=== PATIENT | female | born 1950 | race Caucasian/White ===

== ENCOUNTER 2017-06-15 09:55 | Inpatient (IN) | payer MEDICARE, BC ==
[~2017-06-15] VITALS: Ht 167.6 cm; Wt 75.3 kg
[2017-06-15] VITALS (10 sets, daily range): BP systolic 116–184; BP diastolic 63–100; PULSE 65–109; RESP 13–18; TEMP 97.7–97.9; O2SAT 95–98
[~2017-06-15 09:55] MED LIST: ATOR20TA42 PO; BONI150T PO; LEVO.05 PO; LORT5TAB PO
[2017-06-15] MEDS ORDERED: SODIUM CHLOR 0.9% 1000 ML INJ 1,000 ML IV ONE (10:00)
--- NOTE | 2017-06-15 10:11 | PD ---
HPI Chief Complaint: Stroke Alert Time Seen by Provider: 09:59 Travel History International Travel<30 days: No Contact w/Intl Traveler<30days: No Traveled to known affect area: No History of Present Illness HPI Patient is a 67-year-old female with history of hypertension and hyperlipidemia who presents to emergency room complaints of possible CVA. Patient reports that she has had a frontal headache for the past 3 days, reports that this morning, her noted that she had was having slurring of speech as well as left arm weakness. Patient reports that she felt ataxic on ambulation, reports that she did not noticed any speech changes or weakness. When EMS arrived on scene, her NIH scale was 0 and she had resolution of her symptoms. Patient reports that she is not on any anticoagulants at this time. Denies any chest pain or shortness of breath. Patient denies any fall or trauma. Patient reports that she did try taking some Excedrin migraine for her headache, reports no relief of her headache. Patient with no history of CVA or TIA in the past. BS 175 PFSH Past Medical History High Cholesterol: Yes Diminished Hearing: No GERD: Yes Hypertension: Yes Musculoskeletal: Yes (OSTEOPOROSIS) Thyroid Disease: Yes Past Surgical History Surgical History: No Previous Surgery Social History Alcohol Use: Yes ("OCCASIONALLY") Tobacco Use: No Substance Use: No Allergies-Medications (Allergen,Severity, Reaction): Coded Allergies: Sulfa (Sulfonamide Antibiotics) (Unverified Allergy, Mild, HEADACHE, ) Reported Meds & Prescriptions Reported Meds & Active Scripts Active Reported Lipitor (Atorvastatin Calcium) 20 Mg Tab 20 Mg PO DAILY Synthroid (Levothyroxine Sodium) 50 Mcg Tab 50 Mcg PO DAILY Dyrenium (Triamterene) 50 Mg Cap Unknown Dose PO DAILY Review of Systems General / Constitutional: No: Fever Eyes: No: Visual changes HENT: Positive: Headaches, Vertigo Cardiovascular: No: Chest Pain or Discomfort Respiratory: No: Shortness of Breath Gastrointestinal: No: Abdominal Pain Genitourinary: No: Dysuria Musculoskeletal: No: Pain Skin: No Rash Neurologic: Positive: Weakness, Dizziness, Coordination Problem, Ataxia, Slurred Speech, Sensory Disturbance Psychiatric: No: Depression Endocrine: No: Polydipsia Hematologic/Lymphatic: No: Easy Bruising Physical Exam Narrative GENERAL: Moderate distress SKIN: Focused skin assessment warm/dry. HEAD: Atraumatic. Normocephalic. EYES: Pupils equal and round. No scleral icterus. No injection or drainage. ENT: No nasal bleeding or discharge. Mucous membranes pink and moist. NECK: Trachea midline. No JVD. CARDIOVASCULAR: Regular rate and rhythm. No murmur appreciated. RESPIRATORY: No accessory muscle use. Clear to auscultation. Breath sounds equal bilaterally. GASTROINTESTINAL: Abdomen soft, non-tender, nondistended. Hepatic and splenic margins not palpable. MUSCULOSKELETAL: No obvious deformities. No clubbing. No cyanosis. No edema. NEUROLOGICAL: Awake and alert. No obvious cranial nerve deficits. Motor grossly within normal limits. Normal speech. CN 2- 12 grossly intact with no obvious neurological deficits PSYCHIATRIC: Appropriate mood and affect; insight and judgment normal. Data Data Last Documented VS Vital Signs Date Time Temp Pulse Resp B/P (MAP) Pulse Ox O2 Delivery O2 Flow Rate FiO2 06/15/17 11:13 65 15 166/74 (104) 98 Nasal Cannula 06/15/17 10:12 2.00 06/15/17 09:55 97.7 Orders Orders Electrocardiogram (06/15/17 ) I-Stat Creatinine (06/15/17 10:00) I-Stat Profile (06/15/17 10:00) Prothrombin Time / Inr (Pt) (06/15/17 10:00) Act Partial Throm Time (Ptt) (06/15/17 10:00) Complete Blood Count With Diff (06/15/17 10:00) Creatine Kinase (Cpk) (06/15/17 10:00) Troponin I (06/15/17 10:00) Ua Includes Microscopic (06/15/17 10:00) Ct Brain W/O Iv Contrast(Rout) (06/15/17 ) Chest, Single Ap (06/15/17 ) Consult Neurology (06/15/17 ) Blood Glucose (06/15/17 10:00) Ecg Monitoring (06/15/17 10:00) Iv Access Insert/Monitor (06/15/17 10:00) NPO (06/15/17 10:00) Oximetry (06/15/17 10:00) Sodium Chlor 0.9% 1000 Ml Inj (Ns 1000 M (06/15/17 10:00) Dexamethasone Inj (Decadron Inj) (06/15/17 10:15) Levetiracetam 1000 Mg Inj (Keppra 1000 M (06/15/17 10:15) Consult Neurosurgery (06/15/17 ) Mri Brain W&W/O Contrast (06/15/17 ) Morphine Inj (Morphine Inj) (06/15/17 10:45) Ondansetron Inj (Zofran Inj) (06/15/17 10:45) Atorvastatin (Lipitor) (06/16/17 09:00) Levothyroxine (Synthroid) (06/16/17 09:00) Labs Laboratory Tests Test 06/15/17 10:00 White Blood Count 10.2 TH/MM3 Red Blood Count 4.88 MIL/MM3 Hemoglobin 15.7 GM/DL Bedside Hemoglobin 16.3 G/DL Hematocrit 46.6 % Bedside Hematocrit 48.0 % Mean Corpuscular Volume 95.5 FL Mean Corpuscular Hemoglobin 32.2 PG Mean Corpuscular Hemoglobin Concent 33.8 % Red Cell Distribution Width 13.1 % Platelet Count 231 TH/MM3 Mean Platelet Volume 9.8 FL Neutrophils (%) (Auto) 82.7 % Lymphocytes (%) (Auto) 13.5 % Monocytes (%) (Auto) 3.4 % Eosinophils (%) (Auto) 0.1 % Basophils (%) (Auto) 0.3 % Neutrophils # (Auto) 8.5 TH/MM3 Lymphocytes # (Auto) 1.4 TH/MM3 Monocytes # (Auto) 0.3 TH/MM3 Eosinophils # (Auto) 0.0 TH/MM3 Basophils # (Auto) 0.0 TH/MM3 CBC Comment DIFF FINAL Differential Comment Prothrombin Time 10.7 SEC Prothromb Time International Ratio 1.0 RATIO Activated Partial Thromboplast Time 21.2 SEC Bedside Sodium 143 MMOL/L Bedside Potassium 3.7 MMOL/L Bedside Chloride 101 MMOL/L Bedside Blood Urea Nitrogen 18 MG/DL Bedside Creatinine 0.9 MG/DL Bedside Glucose 159 MG/DL Total Creatine Kinase 56 U/L Troponin I LESS THAN 0.02 NG/ML [facility] Medical Screen Exam Complete: Yes Emergency Medical Condition: Yes Medical Record Reviewed: Yes EKG Prior to Arrival: No Differential Diagnosis EKG at 1030: NSR at 93bpm, qt/qtc; 284/334, incomplete rbbb Differential includes intracranial hemorrhage, CVA, TIA, ACS, arrhythmia, intracranial mass Narrative Course 67-year-old female who presents to emergency room as a stroke alert. Onset of symptoms was 6 AM this morning with slurring of speech and left arm drift. Blood sugar was 135 while in the emergency room. Patient with near resolution of symptoms upon presentation to the emergency room, reports that she still had a frontal headache. Stroke protocol initiated Dr. Sepulveda consulted CT of the head shows a large mass to the right lateral ventricle which extends to the right frontal and right temporal lobe with vasogenic edema, there is slight shift do this mass with slight herniation. Case reviewed with Dr. Witt, will see her in consult. We'll start patient on antiseizure medications as well as IV steroids. Call made to neurosurgery. Patient is not a lytic candidate at this time. Case reviewed with Dr. Gonzalez, will see patient in consult, request keppra and MRI of brain Case will be admitted to mechanical maintenance All findings reviewed were reviewed with patient in detail. case reviewed with Dr. Johnson who accepts pt to service Critical Care Narrative Aggregate critical care time was 30 minutes. Time to perform other separately billable procedures was not included in the critical care time. My time did not include minutes spent treating any other patients simultaneously or on activities that did not directly contribute to the patient's treatment. The services I provided to this patient were to treat and/or prevent clinically significant deterioration that could result in: , decompensation, deterioration I provided critical care services requiring my management, as noted below: Chart data review, documentation time, medication orders and management, vital sign assessments/reviewing monitor data, ordering and reviewing lab tests, ordering and interpreting/reviewing x-rays and diagnostic studies, care of the patient and discussion of the patient with the admitting physicians. Stroke Alert NIHSS NIH Stroke Scale Result: 0 NIHSS Time Completed: 09:57 Thrombolytic Contraindications Contraindications Comment: Intracranial mass Diagnosis Diagnosis: Primary Impression: Intracranial mass Admitting Physician Requests: Ciara Benites DO Jun 15, 2017 10:11
[2017-06-15] MEDS ORDERED: levETIRAcetam 1000 MG INJ 100 ML IV ONE (10:15)
[2017-06-15] MEDS ORDERED: DEXAMETHASONE SOD PHOS 20 MG/5 ML VIAL IV PUSH ONE (10:15)
--- NOTE | 2017-06-15 10:16 | RADRPT ---
EXAM DATE/TIME: 06/15/2017 09:58 [facility] COMPARISON: No previous studies available for comparison. INDICATIONS : Stroke alert, left sided weakness and slurred speech. RADIATION DOSE: 56.40 CTDIvol (mGy) MEDICAL HISTORY : Hypertension. SURGICAL HISTORY : None. ENCOUNTER: Initial ACUITY: 1 day PAIN SCALE: 0/10 LOCATION: cranial TECHNIQUE: Multiple contiguous axial images were obtained of the head. Using automated exposure control and adj ustment of the mA and/or kV according to patient size, radiation dose was kept as low as reasonably a chievable to obtain optimal diagnostic quality images. DICOM format image data is available electro nically for review and comparison. FINDINGS: CEREBRUM: There is a 6.0 x 4.7 cm mass centered in the right lateral ventricle extending into the right frontop arietal cerebral hemisphere. There is prominent associated vasogenic edema. 1.2 cm right to left midl ine shift. Scattered calcification is seen within the mass. No evidence of acute hemorrhage. Ventricu lar size is within normal limits. POSTERIOR FOSSA: The cerebellum and brainstem are intact. The 4th ventricle is midline. The cerebellopontine angle i s unremarkable. EXTRACRANIAL: The visualized portion of the orbits is intact. SKULL: The calvaria is intact. No evidence of skull fracture. CONCLUSION: Large right-sided intracranial mass involving the right lateral ventricle as well as the right fronto parietal cerebral hemisphere. Prominent associated vasogenic edema and right to left midline shift. F indings suggest a primary intracranial malignancy. The mass does have associated calcification. Findi ngs were discussed with Dr. Day at 1010. Obie Malagon MD on June 15, 2017 at 10:09 Board Certified Radiologist. This report was verified electronically.
[2017-06-15 10:21] LABS: I-STAT POTASSIUM 3.7 MMOL/L (3.5-4.9); I-STAT SODIUM 143 MMOL/L (138-146)
[2017-06-15 10:22] LABS: AUTOMATED NEUTROPHIL # 8.5 TH/MM3 (1.8-7.7); BASOPHIL % 0.3 % (0.0-2.0); EOSINOPHIL % 0.1 % (0.0-4.0); HEMATOCRIT 46.6 % (35.0-46.0); HEMO FLAGS DIFF FINAL; LYMPH % 13.5 % (9.0-44.0); LYMPHOCYTE # 1.4 TH/MM3 (1.0-4.8); MEAN CELL VOLUME 95.5 FL (80.0-100.0); MEAN CORPUSCULAR HEMOGLOBIN 32.2 PG (27.0-34.0); MEAN CORPUSCULAR HGB CONC 33.8 % (32.0-36.0); MONO % 3.4 % (0.0-8.0); NEUT % 82.7 % (16.0-70.0); PLATELET COUNT 231 TH/MM3 (150-450); RED BLOOD COUNT 4.88 MIL/MM3 (4.00-5.30); RED CELL DISTRIBUTION WIDTH 13.1 % (11.6-17.2); WHITE BLOOD COUNT 10.2 TH/MM3 (4.0-11.0)
[2017-06-15 10:30] LABS: APTT (PATIENT) 21.2 SEC (24.3-30.1); PROTHROMBIN TIME - PATIENT 10.7 SEC (9.8-11.6)
--- NOTE | 2017-06-15 10:37 | RADRPT ---
EXAM DATE/TIME: 06/15/2017 10:20 [facility] COMPARISON: No previous studies available for comparison. INDICATIONS : Stroke Alert MEDICAL HISTORY : Hypertension. SURGICAL HISTORY : None. ENCOUNTER: Initial ACUITY: 1 day PAIN SCORE: Non-responsive. LOCATION: chest FINDINGS: A single view of the chest demonstrates the lungs to be symmetrically aerated without evidence of mas s, infiltrate or effusion. The cardiomediastinal contours are unremarkable. Osseous structures are intact. CONCLUSION: 1. No acute cardiopulmonary findings. Harvinder Bryant MD on June 15, 2017 at 10:35 Board Certified Radiologist. This report was verified electronically.
[2017-06-15] MEDS ORDERED: LEVO.05 PO (10:45)
[2017-06-15] MEDS ORDERED: ONDANSETRON HCL 4 MG/2 ML VIAL IV PUSH ONE (10:45)
[2017-06-15] MEDS ORDERED: MORPHINE SULFATE 4 MG/ML INJ IV PUSH ONE (10:45)
[2017-06-15] MEDS ORDERED: LIPI20TA PO (10:45)
[2017-06-15] MEDS ORDERED: TRIA1CAP6 PO (10:45)
[2017-06-15 10:52] LABS: CREATINE KINASE 56 U/L (26-192)
--- NOTE | 2017-06-15 11:42 | MB ---
cc: LEX COPELAND MD DATE OF CONSULTATION 06/15/2017 REASON FOR CONSULTATION Next stroke alert HISTORY OF PRESENT ILLNESS Ms. Martinez is a 67-year-old female who presented to the [facility] as a stroke alert. She has past medical history of hypertension, hyperlipidemia and she complained this morning of headache, frontal for three days, but her noted that she had slurring of speech with mild left arm weakness. The patient also reported that she felt unsteady when she walks however, she did not notice speech changes. Upon arrival of the EMS, an NIH stroke scale was zero with resolution of the symptoms. The patient is not on any blood thinners or anticoagulation. Denies double vision, blurred vision, convulsions, seizure, chronic headache or migraine. No history of cancer. An urgent PET/CT scan was ordered and revealed a large right-sided intracranial mass involving the right lateral ventricle, as well as the right frontoparietal cerebral hemisphere, prominent associated with vasogenic edema and right to left midline shift. Findings suggest primary intracranial malignancy. The mass does have associated calcification. PAST MEDICAL HISTORY 1. Hyperlipidemia 2. Gastroesophageal reflux disease 3. Hypertension 4. Osteoporosis 5. Thyroid disease PAST SURGICAL HISTORY Not relevant. REVIEW OF SYSTEMS A 12-point review of systems is negative except what is stated in the HPI. SOCIAL HISTORY Occasionally uses alcohol. Denies tobacco and substance abuse. ALLERGIES SULFA MEDICATIONS 1. Lortab 2. Boniva 3. Synthroid 4. Lipitor FAMILY HISTORY Noncontributory PHYSICAL EXAMINATION GENERAL: Awake, alert, and oriented to time, person and place, anxious. HEENT: Atraumatic, normocephalic. Intact hearing and intact vision. NECK: Supple. No signs of meningeal irritation. No carotid bruit. CARDIOVASCULAR: Regular rate and rhythm. No murmurs. RESPIRATORY: Clear to auscultation. No wheezes. GASTROINTESTINAL: Soft abdomen, nontender. MUSCULOSKELETAL: Moves extremities equally. No clubbing, no cyanosis, no deformity. NEUROLOGIC: Awake, alert, and oriented to time, person and place. No signs of meningeal irritation. No dysarthria. No dysphasia. He has left visual field neglect with diminished sensation of the left face, subtle left facial weakness 5/5 bilateral and symmetrical. Positive for sensory extinction on the entire left side with diminished sensation of the left upper and lower extremity. Cerebellar functions are intact [id number], [id number]. Reflexes bilateral symmetrical, left plantar is upgoing. Positive Babinski. Right plantar downgoing. PSYCHIATRY: Anxious, appropriate mood and affect. No hallucination. LABORATORY DATA White blood cells 10.2, hemoglobin 15.7, hematocrit 46, MCV 33.8, platelet 231. Sodium 143, potassium 3.7, BUN 18, creatinine 0.9, glucose 159. DIAGNOSTICS IMAGING - Head CT scan without contrast revealed large right-sided intracranial mass involving the right lateral ventricle as well as the right frontal parietal cerebral hemisphere, prominent associated vasogenic edema and right to left midline shift, findings suggest a primary intracranial malignancy. The mass does have associated calcifications. DIAGNOSTIC IMPRESSION 1. Stroke alert. 2. Intracranial mass lesion with vasogenic edema likely primary intracranial tumor. 3. The patient is not a candidate for IV TPA because of the low NIH stroke scale and the presence of a mass lesion with vasogenic edema. 4. Admission in the ICU. 5. Elevation head of bed. 6. Seizure prophylaxis, Keppra 750 mg twice daily. 7. Prednisone 4 mg q.6 hourly 8. DVT prophylaxis 9. Consult neurosurgery recommendations are appreciated. 10. The clinical case is discussed with Dr. Ciara Day. Thank you for the opportunity to participate in the care of your patient. MD RUPA Hernández/DARLENE /11:03 AM /11:27 AM [place]
[2017-06-15] MEDS ORDERED: RESP: ALBUTEROL 2.5 MG/IPRATROPIUM 0.5 MG NEB (PRN) INH (11:45)
[2017-06-15] MEDS ORDERED: CHLORHEXIDINE GLUCONATE 2 % 1 PACK (2 CLOTHS) TOP PRN (11:45)
[2017-06-15] MEDS ORDERED: ACETAMINOPHEN 325 MG TAB PO PRN (11:45)
[2017-06-15] MEDS ORDERED: MORPHINE SULFATE 4 MG/ML INJ IV PUSH PRN (11:45)
[2017-06-15] MEDS ORDERED: MISCELLANEOUS NURSING INFORMATION XX SCH (11:45)
[2017-06-15] MEDS ORDERED: GADODIAMIDE PF 287 MG/ML 20 ML VIAL (for RAD MRI) IVCONTRAST ONE (13:03)
[2017-06-15] MEDS ORDERED: MANNITOL 12.5 GM/50 ML VIAL IV ONE (14:00)
[2017-06-15] MEDS ORDERED: MANNITOL 12.5 GM/50 ML VIAL IV SCH (14:00)
--- NOTE | 2017-06-15 14:02 | RADRPT ---
EXAM DATE/TIME: 06/15/2017 12:47 [facility] COMPARISON: CT BRAIN W/O CONTRAST, June 15, 2017, 9:58. INDICATIONS : Mass. CONTRAST: 16 cc Omniscan (gadodiamide) IV MEDICAL HISTORY : Hypertension. Hypothyroidism. SURGICAL HISTORY : Right wrist surgery. ENCOUNTER: Subsequent ACUITY: 1 day PAIN SCORE: 0/10 LOCATION: head. TECHNIQUE: Multiplanar, multisequence MRI of the brain was performed both prior to and following the administrat ion of paramagnetic contrast. FINDINGS: MRI confirms the presence of a large intensely enhancing slightly heterogeneous mass involving the ri ght parietal region. The mass measures 6.1 x 6.0 x 4.7 cm (sagittal x AP x transverse). There is mode rate dilatation of the right occipital and temporal horns of the lateral ventricle and compression an d effacement of the body and frontal horn. The lesion may arise in an intraventricular location, castañeda theodore this is not determined with certainty. Prominent surrounding vasogenic edema is present. There is slightly greater than 1 cm subfalcine midline shift. There is encroachment of brain tissue and tumor on the ambient cistern and slight compression of the upper brainstem Other than the brain shaft, the contralateral left hemisphere and the posterior fossa structures are unremarkable. No other similar lesions present elsewhere aerated There is no evidence of hemorrhage. There is nothing to suggest acute infarction. CONCLUSION: Slightly heterogeneous though fairly well circumscribed intensely enhancing mass in the right parieta l region. Potentially arising in an intraventricular location. Differential considerations would prim arily include tumors of ependymal, choroid plexus or glial origin. Metastatic disease would be an add itional consideration felt less likely. Jeff Dunne MD on June 15, 2017 at 13:45 Board Certified Radiologist. This report was verified electronically.
--- NOTE | 2017-06-15 15:05 | HHI.HP ---
HPI Service Critical Care Medicine Primary Care Physician Unknown Admission Diagnosis Intracranial mass with vasogenic edema Diagnosis: Chief Complaint: Wobbly walking and headache. Travel History International Travel<30 Days: No Contact w/Intl Traveler <30 Da: No Traveled to Known Affected Are: No History of Present Illness 67 y/o woman has a several day headache and new ataxia associated with left arm weakness., slurred speech. Arrived as stroke alert and CT Head reveals 6.0 X 4.5 X 6.0 cm right hemispheric mass, largely involving lateral ventricle right side. Subfalcine shift right to left > 10 mm. Received Keppra, Decadron, and mannitol. Review of Systems Constitutional: DENIES: Diaphoretic episodes, Fatigue, Fever, Weight gain, Weight loss, Chills, Dizziness, Change in appetite, Night Sweats Endocrine: DENIES: Abnorml menstrual pattern, Heat/cold intolerance, Polydipsia , Polyuria, Polyphagia Eyes: DENIES: Blurred vision, Diplopia, Eye inflammation, Eye pain, Vision loss , Photosensitivity, Double Vision Ears, nose, mouth, throat: DENIES: Tinnitus, Hearing loss, Vertigo, Nasal discharge, Oral lesions, Throat pain, Hoarseness, Ear Pain, Running Nose, Epistaxis, Sinus Pain, Toothache, Odynophagia Respiratory: DENIES: Apneas, Cough, Snoring, Wheezing, Hemoptysis, Sputum production, Shortness of breath Cardiovascular: DENIES: Chest pain, Palpitations, Syncope, Dyspnea on Exertion , PND, Lower Extremity Edema, Orthopnea, Claudication Musculoskeletal: DENIES: Joint pain, Muscle aches, Stiffness, Joint Swelling, Back pain, Neck pain Integumentary: DENIES: Abnormal pigmentation, Pruritus, Rash, Nail changes, Breast masses, Breast skin changes, Nipple discharge Hematologic/lymphatic: DENIES: Bruising, Lymphadenopathy Immunologic/allergic: DENIES: Eczema, Urticaria Neurologic: COMPLAINS OF: Abnormal gait, Headache, Localized weakness, Speech Problems, Poor Balance Past Family Social History Allergies: Coded Allergies: Sulfa (Sulfonamide Antibiotics) (Unverified Allergy, Mild, HEADACHE, ) Past Medical History Past Medical History High Cholesterol: Yes Diminished Hearing: No GERD: Yes Hypertension: Yes Musculoskeletal: Yes (OSTEOPOROSIS) Thyroid Disease: Yes Past Surgical History Surgical History: No Previous Surgery Social History Alcohol Use: Yes ("OCCASIONALLY") Tobacco Use: No Substance Use: No Allergies-Medications Allergies-Medications (Allergen,Severity, Reaction): Coded Allergies: Sulfa (Sulfonamide Antibiotics) (Unverified Allergy, Mild, HEADACHE, ) Reported Meds & Prescriptions Reported Meds & Active Scripts Active Reported Lipitor (Atorvastatin Calcium) 20 Mg Tab 20 Mg PO DAILY Synthroid (Levothyroxine Sodium) 50 Mcg Tab 50 Mcg PO DAILY Dyrenium (Triamterene) 50 Mg Cap Unknown Dose PO DAILY Physical Exam Vital Signs Vital Signs Date Time Temp Pulse Resp B/P (MAP) Pulse Ox O2 Delivery O2 Flow Rate FiO2 06/15/17 14:05 70 18 143/65 (91) 99 06/15/17 11:13 65 15 166/74 (104) 98 Nasal Cannula 06/15/17 10:12 83 18 180/79 (112) 98 Nasal Cannula 2.00 06/15/17 10:05 92 16 172/81 (111) 97 Nasal Cannula 2.00 06/15/17 09:55 97.7 109 16 184/100 (128) 97 06/15/17 09:55 97 Room Air 06/15/17 09:55 97.7 109 18 184/100 (128) 97 Room Air Physical Exam Gen: Sedated after MRI. Head: Atraumatic. Neck: Supple, airway widely patent. Lungs: Clear, no wheezes or crackles. Heart: NL S1S2, no m,r. No JVD. Abdomen: Soft, no guarding. Extremities: Warm, well perfused. Neuro: Pupils 2 mm, reactive. Largely unresponsive (due to sedation/analgesia for MRI ?) DTRs 3+ left knee, 2+ right knee. No clonus. Toes down right. Neutral left. Protects airway, gag intact. Laboratory Laboratory Tests Test 06/15/17 10:00 White Blood Count 10.2 Red Blood Count 4.88 Hemoglobin 15.7 Bedside Hemoglobin 16.3 Hematocrit 46.6 Bedside Hematocrit 48.0 Mean Corpuscular Volume 95.5 Mean Corpuscular Hemoglobin 32.2 Mean Corpuscular Hemoglobin Concent 33.8 Red Cell Distribution Width 13.1 Platelet Count 231 Mean Platelet Volume 9.8 Neutrophils (%) (Auto) 82.7 Lymphocytes (%) (Auto) 13.5 Monocytes (%) (Auto) 3.4 Eosinophils (%) (Auto) 0.1 Basophils (%) (Auto) 0.3 Neutrophils # (Auto) 8.5 Lymphocytes # (Auto) 1.4 Monocytes # (Auto) 0.3 Eosinophils # (Auto) 0.0 Basophils # (Auto) 0.0 CBC Comment DIFF FINAL Differential Comment Prothrombin Time 10.7 Prothromb Time International Ratio 1.0 Activated Partial Thromboplast Time 21.2 Bedside Sodium 143 Bedside Potassium 3.7 Bedside Chloride 101 Bedside Blood Urea Nitrogen 18 Bedside Creatinine 0.9 Bedside Glucose 159 Total Creatine Kinase 56 Troponin I LESS THAN 0.02 Result Diagram: 06/15/17 1000 Caprini VTE Risk Assessment Caprini VTE Risk Assessment: Mod/High Risk (score >= 2) Caprini Risk Assessment Model Point Value = 1 Point Value = 2 Point Value = 3 Point Value = 5 Age 41-60 Minor surgery BMI > 25 kg/m2 Swollen legs Varicose veins or History of unexplained or recurrent spontaneous Oral contraceptives or hormone replacement Sepsis (< 1 month) Serious lung disease, including pneumonia (< 1 month) Abnormal pulmonary function Acute myocardial infarction Congestive heart failure (< 1 month) History of inflammatory bowel disease Medical patient at bed rest Age 61-74 Arthroscopic surgery Major open surgery (> 45 min) Laparoscopic surgery (> 45 min) Malignancy Confined to bed (> 72 hours) Immobilizing plaster cast Central venous access Age >= 75 History of VTE Family history of VTE Factor V Leiden Prothrombin [id number] Lupus anticoagulant Anticardiolipin antibodies Elevated serum homocysteine Heparin-induced thrombocytopenia Other congenital or acquired thrombophilia Stroke (< 1 month) Elective arthroplasty Hip, pelvis, or leg fracture Acute spinal cord injury (< 1 month) Prophylaxis Regimen Total Risk Factor Score Risk Level Prophylaxis Regimen 0-1 Low Early ambulation 2 Moderate Order ONE of the following: *Sequential Compression Device (SCD) *Heparin 5000 units SQ BID 3-4 Higher Order ONE of the following medications: *Heparin 5000 units SQ TID *Enoxaparin/Lovenox 40 mg SQ daily (WT < 150 kg, CrCl > 30 mL/min) *Enoxaparin/Lovenox 30 mg SQ daily (WT < 150 kg, CrCl > 10-29 mL/min) *Enoxaparin/Lovenox 30 mg SQ BID (WT < 150 kg, CrCl > 30 mL/min) AND/OR *Sequential Compression Device (SCD) 5 or more Highest Order ONE of the following medications: *Heparin 5000 units SQ TID (Preferred with Epidurals) *Enoxaparin/Lovenox 40 mg SQ daily (WT < 150 kg, CrCl > 30 mL/min) *Enoxaparin/Lovenox 30 mg SQ daily (WT < 150 kg, CrCl > 10-29 mL/min) *Enoxaparin/Lovenox 30 mg SQ BID (WT < 150 kg, CrCl > 30 mL/min) AND *Sequential Compression Device (SCD) Assessment and Plan Assessment and Plan Assessment: 1. Large right hemisphere mass. 2. Right to left shift.shift. 3. Ataxia, left side weakness. 4. Slurred speech. Plan: 1. Mannitol bolus and q8h. 2. Decadron bolus and q6h. 3. Limit fluid. 4. Airway precautions. 5. Pepcid. 6. No chemical DVT px. 7. SCDs. 8 Neurosurgery evaluation. Overall impression: Critically ill with large brain mass, probable cytogenic edema and potential for herniation. Requires immediate efforts to reduce cerebral edema. Evaluation by neurosurgery. Critical Care 44 mins Jaspreet Paez MD Jun 15, 2017 15:05
[2017-06-15] MEDS ORDERED: DEXAMETHASONE SOD PHOS 4 MG/ML VIAL IV PUSH SCH (16:00)
[2017-06-15] MEDS: DEXAMETHASONE SOD PHOS 4 MG/ML VIAL IV PUSH SCH ×2 (16:00→20:17)
--- NOTE | 2017-06-15 16:52 | EKG ---
Date Performed: 06/15/2017 Time Performed: 10:30:18 PTAGE: 67 years EKG: Sinus rhythm POSSIBLE LEFT ATRIAL ENLARGEMENT BORDERLINE LEFT AXIS DEVIATION INCOMPLETE RIGHT BUNDLE BRANCH BLOCK NONSPECIFIC ST & T-WAVE ABNORMALITY BORDERLINE ECG NO PREVIOUS TRACING DOCTOR: Sarah Castillo Interpretating Date/Time 06/15/2017 16:52:08
[2017-06-15] MEDS ORDERED: ALUMINUM/MAGNESIUM/SIMETH 30 ML CUP PO PRN (17:15)
[2017-06-15] MEDS ORDERED: MENTHOL LOZENGE BUCCAL PRN (17:15)
[2017-06-15] MEDS ORDERED: MAGNESIUM HYDROXIDE SUSP 30 ML CUP PO PRN (17:15)
[2017-06-15] MEDS ORDERED: ACETAMINOPHEN/HYDROcodone 325 MG/5 MG TAB PO PRN (17:15)
[2017-06-15] MEDS ORDERED: PROMETHAZINE INJ 25 MG/ML VIAL IM PRN (17:15)
[2017-06-15] MEDS ORDERED: SODIUM CHLORIDE 0.9% FLUSH 10 ML FLUSH IV FLUSH PRN (17:15)
--- NOTE | 2017-06-15 18:15 | MB ---
cc: ALEX FERNANDEZ MD DATE OF CONSULTATION 06/15/17 REASON FOR CONSULTATION Brain mass. HISTORY OF PRESENT ILLNESS This is a 67-year-old right-handed female who presented to the emergency room with complaints of weakness on the left side that started about four days ago along with some slurred speech. She is veering to the left side and basically almost fell but did not strike her head this morning. She was initially brought in as a stroke alert. A CT scan of the head obtained reveals a large right intraventricular mass involving the thalamus and part of the mid brain with surrounding edema. No hydrocephalus is noted, although the right temporal horn may be entrapped and is moderately dilated. She had an MRI scan which reveals a very complex and large enhancing mass with partial areas of calcification and measures close to 6 cm with bi-lobed appearance involving the parietal and temporal lobes as well as the body of the lateral ventricle and the temporal horn dilation with involvement of the thalamus and either compression or invasion of the lateral aspect of the brainstem. The patient relates that she has had headaches along with nausea and vomiting this morning. She has been lethargic but does arouse, although has also received morphine and apparently is very sensitive to this. relates for the past couple of months she has had some headaches on and off but not unusual for her. Up until four or five days ago they really did not notice any significant symptoms. PAST MEDICAL HISTORY 1. Hypertension, 2. Hyperlipidemia, 3. Gastroesophageal reflux, 4. Osteoporosis, 5. Hypothyroidism. MEDICATIONS 1. Triamterene 15 mg daily. 2. Synthroid 50 mcg daily. 3. Lipitor 20 mg daily. ALLERGIES SULFA SOCIAL HISTORY She is and her is here with her. She quit smoking over 30 years ago and drinks alcohol on a social basis. REVIEW OF SYSTEMS Complains of a headache. Complains initially of nausea, vomiting, although not recently. Complains of left-sided weakness. Complains of numbness. Complains of visual loss especially on the left side. Denies any chest pain or shortness of breath. Denies any abdominal pain. Denies any fevers or chills. Denies any recent weight gain or weight loss. No seizure or seizure-like activity noted. Does relate unsteady gait with veering to the left side with slight confusion. LABORATORY FINDINGS White blood cell count 10.2, hemoglobin 15.7. Platelet count 231, PT 10.7, INR 1.0, PTT 21.2. Sodium 143, potassium 3.7, BUN 18, creatinine 0.9, glucose of 159. FAMILY HISTORY Positive for colon cancer in the mother. Otherwise no other significant family history and she has no children. PHYSICAL EXAMINATION VITAL SIGNS: Temperature 97.7, pulse is 70, respiratory rate 18, blood pressure 143/65, oxygen saturations 98% two liters nasal cannula. HEENT: Head - Normocephalic, atraumatic. Negative Mckee's and raccoon's sign. NECK: Supple with no guarding or rigidity with good range of motion. CHEST: Clear to auscultation bilaterally HEART: Regular rate and rhythm, normal S1, S2. ABDOMEN: Soft, nontender. No hepatosplenomegaly. Positive bowel sounds. EXTREMITIES: No cyanosis or edema. SKIN: No breakdown, ecchymosis, soft tissue trauma or rashes noted. NEUROLOGIC: She is awake, alert. She is oriented to location and name but not the date. Pupils are equal and reactive. Extraocular muscles are intact. She has a left homonymous hemianopsia. Slight left facial droop. Tongue is midline. EXTREMITIES: Right upper and lower extremities She has good strength. On the left upper extremity, she is 3/5. Left lower extremity 4-/5. Decreased sensation to light touch on left-side Negative Babinski. Speech is fluent, although she is lethargic but does arouse to verbal stimulation readily. IMPRESSION 1. Large right temporoparietal lobe mass involving the lateral ventricle with a multi-lobed appearance and enhancement with small areas of calcification and also involving the thalamus as well as the mid brain. Differential diagnosis includes a glioma, giant cell astrocytoma, pandamoma, corroid plexus with papilloma or a choriocarcinoma, metastasis among other possibilities. 2. Hypertension. PLAN The patient will be monitored closely in the surgical intensive care unit. Head of bed will be kept elevated at 30 degrees. She will be continued with Decadron and mannitol. Gastrointestinal stress ulcer prophylaxis, seizure prophylaxis and mechanical DVT prophylaxis will be undertaken. I have had a lengthy discussion with the patient as well as her and family members at bedside and reviewed the MRI scan images with them. I have recommended a right craniotomy with excisional biopsy. Aggressive resection of this mass is likely not going to be feasible given the location and deeper extension and involvement of the thalamus and possibly the brainstem. We will also place a ventriculostomy, since the right temporal horn is moderately dilated and she is at risk for development of hydrocephalus. The risks and benefit involved were discussed and they voiced understanding and all of their questions were answered. They are requesting to proceed with surgery and accordingly this will be scheduled for tomorrow and informed consent obtained. MD ARNOLD Mills/ /5:20 PM /5:46 PM
[2017-06-15] MEDS: levETIRAcetam 500 MG TAB PO SCH (20:16)
[2017-06-15] MEDS: DOCUSATE SODIUM 100 MG CAP PO SCH (20:16)
[2017-06-15] MEDS: FAMOTIDINE 20 MG TAB PO SCH (20:17)
[2017-06-15] MEDS: SODIUM CHLORIDE 0.9% FLUSH 10 ML FLUSH IV FLUSH SCH (20:18)
[2017-06-15] MEDS: levETIRAcetam INJ 500 MG in SODIUM CHLORIDE 0.9% INJ 100 ML IV SCH (20:18)
[2017-06-15] MEDS: MANNITOL INJ 125 ML IV SCH (22:12)
[2017-06-16] VITALS (9 sets, daily range): BP systolic 114–137; BP diastolic 56–71; PULSE 35–102; RESP 14–22; TEMP 98.2–98.4; O2SAT 98–100
[2017-06-16] MEDS: DEXAMETHASONE SOD PHOS 4 MG/ML VIAL IV PUSH SCH ×3 (03:46→22:16)
[2017-06-16] MEDS: ACETAMINOPHEN 325 MG TAB PO PRN (03:47)
[2017-06-16] MEDS: CHLORHEXIDINE GLUCONATE 2 % 1 PACK (2 CLOTHS) TOP SCH (04:00)
[2017-06-16] MEDS: MANNITOL INJ 125 ML IV SCH ×2 (04:00→11:20)
[2017-06-16 05:32] LABS: BICARBONATE 26.4 MEQ/L (21.0-32.0); MAGNESIUM 2.2 MG/DL (1.5-2.5); POTASSIUM 3.5 MEQ/L (3.5-5.1)
[2017-06-16] MEDS: LEVOTHYROXINE SODIUM 50 MCG TAB PO SCH (05:43)
[2017-06-16] MEDS: levETIRAcetam INJ 500 MG in SODIUM CHLORIDE 0.9% INJ 100 ML IV SCH (08:31)
[2017-06-16] MEDS: SODIUM CHLORIDE 0.9% FLUSH 10 ML FLUSH IV FLUSH SCH ×2 (08:31→20:11)
[2017-06-16] MEDS: ATORVASTATIN 20 MG TAB PO SCH (08:32)
[2017-06-16] MEDS: levETIRAcetam 500 MG TAB PO SCH ×2 (08:32→20:11)
[2017-06-16] MEDS: DOCUSATE SODIUM 100 MG CAP PO SCH ×2 (09:00→20:11)
[2017-06-16] MEDS: FAMOTIDINE 20 MG TAB PO SCH ×2 (09:01→20:11)
[2017-06-16] MEDS: MORPHINE SULFATE 4 MG/ML INJ IV PUSH PRN (09:23)
[2017-06-16] MEDS: ONDANSETRON HCL 4 MG/2 ML VIAL IV PUSH PRN (09:23)
[2017-06-16] MEDS ORDERED: INFLUENZA VIRUS VACCINE (QUADRIVALENT) 0.5 ML SYR IM ONE (10:00)
--- NOTE | 2017-06-16 10:31 | HHI.CCPN ---
Subjective Remarks/Hospital Course 67 y/o woman has a several day headache and new ataxia associated with left arm weakness., slurred speech. Arrived as stroke alert and CT Head reveals 6.0 X 4.5 X 6.0 cm right hemispheric mass, largely involving lateral ventricle right side. Subfalcine shift right to left > 10 mm. Received Keppra, Decadron, and mannitol. 06/16: Breathing comfortably today. Speech clear. Persistent left side weakness and mild left facial droop. Minimal headache. Objective Vital Signs Date Time Temp Pulse Resp B/P (MAP) Pulse Ox O2 Delivery O2 Flow Rate FiO2 06/16/17 08:00 98.4 69 15 122/58 (79) 98 06/16/17 07:00 Nasal Cannula 1.00 06/15/17 17:52 21 Intake and Output 06/16/17 06/16/17 06/17/17 08:00 16:00 00:00 Output Total 900 ml Balance -900 ml Result Diagram: 06/15/17 1000 06/16/17 0356 Objective Remarks Gen: Sedated after MRI. Head: Atraumatic. Neck: Supple, airway widely patent. Lungs: Clear, no wheezes or crackles. Heart: NL S1S2, no m,r. No JVD. Abdomen: Soft, no guarding. Extremities: Warm, well perfused. Neuro: Pupils 2 mm, reactive. Alert, conversant. DTRs 3+ left knee, 2+ right knee. No clonus. Toes down right. Neutral left. Protects airway, gag intact. Left arm, leg weaker. A/P Assessment and Plan Assessment: 1. Large right hemisphere mass. 2. Right to left shift, 3. Ataxia, left side weakness. 4. Left side weakness. Plan: 1. Mannitol q6h. 2. Decadron q6h. 3. Limit fluid. 4. Airway precautions. 5. Pepcid. 6. No chemical DVT px. 7. SCDs. 8 Neurosurgery evaluation -> excisional biopsy. Overall impression: Large brain mass, probable cytogenic edema. Evaluation by neurosurgery will include excisional biopsy of mass today. Jaspreet Paez MD Jun 16, 2017 10:31
--- NOTE | 2017-06-16 10:37 | EKG ---
Date Performed: 06/16/2017 Time Performed: 06:00:00 PTAGE: 67 years EKG: Normal Sinus rhythm , rate 74 Nonspecific T wave changes Compared to PREVIOUS TRACING nonspecific anterior T wave changes are more prominent PREVIOUS TRACING : 06/15/2017 10.30 DOCTOR: Brown Barrett Interpretating Date/Time 06/16/2017 10:36:16
[2017-06-16] MEDS ORDERED: LIDOCAINE HCL 1% PF 5 ML AMPULE OTHER ONE (12:00)
[2017-06-16] MEDS ORDERED: ePHEDrine/NS 25 MG/5 ML SYR IV ONE (12:00)
[2017-06-16] MEDS ORDERED: DEXAMETHASONE SOD PHOS 4 MG/ML VIAL IV ONE (12:00)
[2017-06-16] MEDS ORDERED: SODIUM CHLOR 0.9% 250 ML INJ 500 ML IV ONE (12:00)
[2017-06-16] MEDS ORDERED: NORMOSOL R INJ 2,000 ML IV ONE (12:00)
[2017-06-16] MEDS ORDERED: PHENYLEPH/NS 1000 MCG/10 ML SYR IV ONE (12:00)
[2017-06-16] MEDS ORDERED: PROPOFOL 200 MG/20 ML AMP IV ONE (12:00)
[2017-06-16] MEDS ORDERED: ESMOLOL HCL 100 MG/10 ML VIAL IV ONE (12:00)
[2017-06-16] MEDS ORDERED: ONDANSETRON HCL 4 MG/2 ML VIAL IV PUSH ONE (12:00)
[2017-06-16] MEDS ORDERED: PHENYLEPHRINE HCL 10 MG/ML VIAL IV ONE (12:00)
[2017-06-16] MEDS ORDERED: ROCURONIUM INJ 50 MG/5 ML SYRINGE IV PUSH ONE (12:00)
[2017-06-16] MEDS ORDERED: KETAMINE HCL 500 MG/5 ML VIAL ONE (12:24)
[2017-06-16] MEDS ORDERED: ACETAMINOPHEN 1000 MG/100 ML 100 ML IV ONE (12:24)
[2017-06-16] MEDS ORDERED: SUGAMMADEX SODIUM 200 MG/2 ML VIAL IV PUSH ONE ×4 (12:24→12:45)
[2017-06-16] MEDS ORDERED: HYDROmorphone HCL PF 2 MG/ML VIAL ONE (12:24)
[2017-06-16] MEDS ORDERED: BUPIVACAINE/EPINEPHRINE 0.5% 50 ML VIAL ONE (12:37)
[2017-06-16] MEDS ORDERED: levETIRAcetam 500 MG/5 ML VIAL IV ONE (12:38)
[2017-06-16] MEDS ORDERED: GENTAMICIN SULFATE 80 MG/2 ML VIAL ONE (12:38)
[2017-06-16] MEDS ORDERED: GELFOAM SIZE 100 ONE ×2 (12:38→16:51)
[2017-06-16] MEDS ORDERED: THROMBIN (TOPICAL) 5,000 UNIT VIAL ONE (12:38)
[2017-06-16] MEDS ORDERED: LIDOCAINE HCL 1% 30 ML VIAL ONE (12:43)
[2017-06-16] MEDS ORDERED: VANCOMYCIN HCL 1000 MG VIAL ONE (13:17)
--- NOTE | 2017-06-16 16:00 | OTSOAPIP ---
RECEIVED OCCUPATIONAL THERAPY ORDERS. ATTEMPTED TO SEE PATIENT, HOWEVER PATIENT OFF FLOOR FOR NEOPLASM RESECTION. WILL FOLLOW UP AND REATTEMPT EVALUATION TOMORROW. INTERDISCIPLINARY COMMUNICATION: REVIEWED ELECTRONIC MEDICAL RECORD Therapist: Cheyenne Tenorio OTR/[facility] Signature on file
[2017-06-16 16:39] LABS: BLOOD GAS BASE EXCESS -3.6 mmol/L (-2-2); BLOOD GAS CARBOXYHEMOGLOBIN 1.5 % (0-4); BLOOD GAS HCO3 20 mmol/L (22-26); BLOOD GAS METHEMOGLOBIN 1.2 % (0-2); BLOOD GAS O2 HGB SATURATION 97 % (90-100); BLOOD GAS OXYGEN CONTENT 22.3 Vol % (12.0-20.0); BLOOD GAS PCO2 30 mmHg (38-42); BLOOD GAS PO2 198 mmHg (61-120); BLOOD GAS TOTAL HGB 16.1 G/DL (12.0-16.0); CRITICAL VALUE NO; FIO2 55 %; STAT YES; TEMP CORR TO 98.6; ULNAR PULSE PRESENT
--- NOTE | 2017-06-16 18:21 | PD.OP ---
Operative Report Date of Surgery: Jun 16, 2017 Preoperative Diagnosis: Large multilobulated right intraventricular mass involving the parietal and temporal lobes Postoperative Diagnosis: Same Procedure: Right craniotomy for intraventricular meningioma resection; BrainLab frameless navigation use; ventriculostomy placement; microsurgical technique Anesthesia: Gen. endotracheal by Sheree Harrington Surgeon: Alfredo Gonzalez M.D. Dispute Specialist(s): Wendie Jones Operation and Findings: Following initiation of general endotracheal anesthesia the patient had invasive lines and Sneed catheter in place along with sequential compression device. A gram of vancomycin and Keppra as well as 10 mg Decadron was administered intravenously and she was positioned lateral on the beanbag with the right side up and head secured in the [place] 3 pin headrest. Axillary roll was placed and all pressure points adequately padded. The BrainLab navigation system was then registered with external landmarks and good accuracy confirmed. A right curvilinear temporal parietal incision area head shaved and prepped with ChloraPrep and sterilely draped in the usual sterile fashion. Incision was then made after infiltrating the scalp was 0.5% Marcaine with epinephrine solution a skin incision made and Juan clips were used at the scalp edges for hemostasis and the flap retracted with hooks. Right temporalis muscle and fascia was also incised and detached from the temporal bone and retracted with hooks. With an automated transitions manager rn temporal bur hole made and then with the craniotome the bone flap was elevated. The dura opened in a cruciate format and bone holes placed in the craniotomy edges with 4-0 Nurolon dural tacking stitches for hemostasis. Further dissection was undertaken using microtechnique with microscope medication. A 2 cm corticectomy at the middle temporal gyrus at the midportion of the temporal lobe on the right side was made overlying this mass which extended from the temporal horn into the body of the lateral ventricle compressing on the thalamus as well as the midbrain. Resection of this mass was undertaken using microtechnique microscope magnification along with the BrainLab navigation guidance. I entered into the temporal horn of the ventricle identified this mass which had a whitish coloration fairly distinct border. Initial debulking undertaken in the middle was grayish in coloration with very dense tissue and subsequent circumferential dissection. This was a very large mass extending into the body of the lateral ventricle and the temporal horn with feeders from the choroidal vessels in the temporal horn which were cauterized. The [place] was also used to decompress the mass with internal debulking. Fresh frozen specimen sent was consistent with meningioma. A meticulous dissection undertaken after internal debulking using cottonoids and bipolar cautery for circumferential dissection entered from the temporal horn into the body of the lateral ventricle with gentle peeling off the medial surface of the ventricle. It also extended into the ambient cistern to the choroidal fissure which was gently dissected out. After prolonged and extensive dissection a gross total resection was achieved. Bipolar cautery used for hemostasis in the resection bed which was then lined with Surgicel and no bleeding was encountered at this point. Back Tisseel ventriculostomy was then placed into the body of the lateral ventricle and tunneled under the scalp with a trocar and secured the exit site with a 3-0 nylon tie and connected to a drainage bag. Cavity was filled with saline solution and the dura approximately using 4 Nurolon sutures with a central dural tacking stitch. Bone flap approximated using [place] mini plates and bur hole covers. The area was then copiously irrigated. The temporalis fascia was approximated and using 2-0 Vicryl sutures and the galea reapproximated using 3-0 Vicryl interrupted sutures and final scalp closure was with lucero. The Thomason head was then removed and a sterile pressing dressing applied. There were no intraoperative complications and all sponge and needle count was correct at the end of the procedure. Estimated blood loss about 100 cc. Patient was extubated and taken to the recovery room. Alfredo Gonzalez MD Jun 16, 2017 18:21
[2017-06-16 18:24] LABS: HEMATOCRIT 36.3 % (35.0-46.0); MEAN CELL VOLUME 96.9 FL (80.0-100.0); PLATELET COUNT 206 TH/MM3 (150-450); RED BLOOD COUNT 3.74 MIL/MM3 (4.00-5.30); RED CELL DISTRIBUTION WIDTH 13.2 % (11.6-17.2); REVIEW FLAG FINAL; WHITE BLOOD COUNT 16.3 TH/MM3 (4.0-11.0)
[2017-06-16] MEDS: NS + KCL 20 MEQ INJ 1,000 ML IV SCH (18:27)
[2017-06-16] MEDS ORDERED: niCARdipine INJ 25 MG in SODIUM CHLOR 0.9% 250 ML INJ 240 ML IV PRN (18:30)
[2017-06-16 18:48] LABS: BICARBONATE 23.7 MEQ/L (21.0-32.0); POTASSIUM 3.3 MEQ/L (3.5-5.1)
[2017-06-16] MEDS: LABETALOL HCL 100 MG/20 ML VIAL IV PUSH PRN (19:24)
[2017-06-16] MEDS: cloNIDine HCL 0.1 MG TAB PO PRN (20:11)
[2017-06-17] VITALS (14 sets, daily range): BP systolic 122–165; BP diastolic 60–67; PULSE 64–96; RESP 18–22; TEMP 98.1–98.5; O2SAT 96–100
[2017-06-17] MEDS: LABETALOL HCL 100 MG/20 ML VIAL IV PUSH PRN ×2 (01:33→04:55)
[2017-06-17] MEDS: CHLORHEXIDINE GLUCONATE 2 % 1 PACK (2 CLOTHS) TOP SCH (04:00)
--- NOTE | 2017-06-17 04:35 | RADRPT ---
EXAM DATE/TIME: 06/17/2017 04:19 [facility] COMPARISON: CT BRAIN W/O CONTRAST, June 15, 2017, 9:58. MRI BRAIN W & W/O CONTRAST, June 15, 2017, 12 :47. INDICATIONS : Post operative craniotomy. RADIATION DOSE: 42.96 CTDIvol (mGy) MEDICAL HISTORY : Non-responsive. SURGICAL HISTORY : Non-responsive. ENCOUNTER: Initial ACUITY: 1 day PAIN SCALE: Non-responsive LOCATION: cranial TECHNIQUE: Multiple contiguous axial images were obtained of the head. Using automated exposure control and adj ustment of the mA and/or kV according to patient size, radiation dose was kept as low as reasonably a chievable to obtain optimal diagnostic quality images. DICOM format image data is available electro nically for review and comparison. FINDINGS: Patient now postoperative right craniotomy. Previous mass has been resected. There is a right-sided v entriculostomy. Right lateral ventricle is mostly effaced and there is edema in the right hemisphere. [id number] midline shift is about 1 cm. There is pneumocephalus in the right extra-axial space wi th trace hemorrhage. CONCLUSION: 1. Resection of right-sided intracranial mass with some residual hemorrhage in the operative bed arou nd the right lateral ventricle and on the surface of the right hemisphere. There is edema and some ma ss effect with 1 cm right to left midline shift. Right ventriculostomy present with tip probably with in the effaced right lateral ventricle. Pneumocephalus. Edwin Childs MD on June 17, 2017 at 4:29 Board Certified Radiologist. This report was verified electronically.
[2017-06-17] MEDS: DEXAMETHASONE SOD PHOS 4 MG/ML VIAL IV PUSH SCH ×4 (04:52→21:12)
[2017-06-17] MEDS: NS + KCL 20 MEQ INJ 1,000 ML IV SCH ×2 (04:52→16:44)
[2017-06-17 05:43] LABS: BICARBONATE 24.3 MEQ/L (21.0-32.0); POTASSIUM 3.4 MEQ/L (3.5-5.1)
[2017-06-17] MEDS: LEVOTHYROXINE SODIUM 50 MCG TAB PO SCH (06:24)
[2017-06-17] MEDS: levETIRAcetam 500 MG TAB PO SCH ×2 (08:47→21:13)
[2017-06-17] MEDS: SODIUM CHLORIDE 0.9% FLUSH 10 ML FLUSH IV FLUSH SCH ×2 (08:47→21:13)
[2017-06-17] MEDS: ATORVASTATIN 20 MG TAB PO SCH (08:48)
[2017-06-17] MEDS: DOCUSATE SODIUM 100 MG CAP PO SCH ×2 (08:48→21:12)
[2017-06-17] MEDS: FAMOTIDINE 20 MG TAB PO SCH ×2 (08:48→21:13)
--- NOTE | 2017-06-17 09:28 | HHI.CCPN ---
Subjective Remarks/Hospital Course 67 y/o woman has a several day headache and new ataxia associated with left arm weakness., slurred speech. Arrived as stroke alert and CT Head reveals 6.0 X 4.5 X 6.0 cm right hemispheric mass, largely involving lateral ventricle right side. Subfalcine shift right to left > 10 mm. Received Keppra, Decadron, and mannitol. 06/16: Breathing comfortably today. Speech clear. Persistent left side weakness and mild left facial droop. Minimal headache. 06/17: Lying in bed comfortably, no acute distress, L hemiparesis persists. No head ache today Objective Vital Signs Date Time Temp Pulse Resp B/P (MAP) Pulse Ox O2 Delivery O2 Flow Rate FiO2 06/17/17 08:09 100 Nasal Cannula 1.00 06/17/17 06:00 66 06/17/17 04:00 98.1 19 142/67 (92) 06/15/17 17:52 21 Intake and Output 06/17/17 06/17/17 06/18/17 08:00 16:00 00:00 Intake Total 120 ml Output Total 600 ml Balance -480 ml Result Diagram: 06/16/17 1800 06/17/17 0447 Other Results Laboratory Tests Test 06/16/17 16:32 Blood Gas Puncture Site UNKNOWN Blood Gas Patient Temperature 98.6 Blood Gas HCO3 20 mmol/L (22-26) Blood Gas Base Excess -3.6 mmol/L (-2-2) Blood Gas Oxygen Saturation 97 % (90-100) Arterial Blood pH 7.44 (7.380-7.420) Arterial Blood Partial Pressure CO2 30 mmHg (38-42) Arterial Blood Partial Pressure O2 198 mmHg (61-120) Arterial Blood Oxygen Content 22.3 Vol % (12.0-20.0) Arterial Blood Carboxyhemoglobin 1.5 % (0-4) Arterial Blood Methemoglobin 1.2 % (0-2) Blood Gas Hemoglobin 16.1 G/DL (12.0-16.0) Blood Gas Inspired Oxygen 55 % Objective Remarks Gen: Alert awake Head: Atraumatic. EVD in place with minimal drainage Neck: Supple, airway widely patent. Lungs: Clear, no wheezes or crackles. Heart: NL S1S2, no m,r. No JVD. Abdomen: Soft, no guarding. Extremities: Warm, well perfused. Neuro: Pupils 2 mm, reactive. Alert, conversant. No clonus. Protects airway, gag intact. Left arm, leg weaker. A/P Assessment and Plan Assessment: 1. Large right hemisphere mass. 2. Right to left shift, 3. Ataxia 4. Left hemiplegia 5. Hypokalemia Plan: -Mannitol q6h. -Decadron q6h. -Airway precautions. -Pepcid. -No chemical DVT px. -SCDs. 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 Gonzalez -Electrolyte replacement per protocol -Head of bed will be kept elevated at 30 degrees, Keppra for sz prophylaxis -Keep SBP <140 Overall impression: Large brain mass, with cytogenic edema. Evaluation by neurosurgery and s/p craniotomy and resection Level 3 PT/OT up to chair when ok with N/S Michi Aguilar MD Jun 17, 2017 09:28
[2017-06-17] MEDS ORDERED: POTASSIUM CHLORIDE 25 MEQ EFFERVESCENT TAB PO PRN (09:30)
[2017-06-17] MEDS ORDERED: POTASSIUM CHLOR 20 MEQ PREMIX 100 ML IV PRN ×4 (09:30→11:00)
[2017-06-17] MEDS ORDERED: POTASSIUM CHLOR 40 MEQ PREMIX 100 ML IV PRN ×2 (09:30)
[2017-06-17] MEDS ORDERED: MAGNESIUM OXIDE 400 MG TAB PO PRN (09:30)
[2017-06-17] MEDS ORDERED: MAGNESIUM SULFATE INJ 4 GM in SODIUM CHLORIDE 0.9% INJ 92 ML IV PRN (09:30)
[2017-06-17] MEDS ORDERED: MAGNESIUM SULFATE INJ 2 GM in SODIUM CHLORIDE 0.9% INJ 96 ML IV PRN (09:30)
[2017-06-17] MEDS ORDERED: SODIUM PHOSPHATE INJ 30 MMOL in SODIUM CHLOR 0.9% 250 ML INJ 240 ML IV PRN (09:30)
[2017-06-17] MEDS ORDERED: POTASSIUM PHOSPHATE INJ 30 MMOL in SODIUM CHLOR 0.9% 250 ML INJ 250 ML IV PRN (09:30)
[2017-06-17] MEDS ORDERED: POTASSIUM PHOSPHATE MONOBASIC 500 MG TAB PO/TUBE PRN (09:30)
[2017-06-17] MEDS: ACETAMINOPHEN 325 MG TAB PO PRN (12:38)
--- NOTE | 2017-06-17 12:43 | OTSOAPIP ---
TIME SESSION COMPLETED: TREATMENT TIME: 0 MINS. CHART REVIEWED. PATIENT WAS NOT AVAILABLE DUE TO BEING OFF THE FLOOR FOR A PROCEDURE PLAN: WILL SEE PATIENT WHEN ABLE OR NEXT TREATMENT DAY Therapist: JAYY CHAU/[facility] Signature on file
--- NOTE | 2017-06-17 14:05 | HHI.NSPN ---
History Interval History 9:30: Patient is doing well. Patient reports no headaches. Patient is eating lunch. Exam Results Vital Signs Date Time Temp Pulse Resp B/P (MAP) Pulse Ox O2 Delivery O2 Flow Rate FiO2 06/17/17 12:00 98.5 68 18 127/60 (82) 98 135/64 (87) 06/17/17 08:09 Nasal Cannula 1.00 06/15/17 17:52 21 Intake and Output 06/17/17 06/17/17 06/18/17 08:00 16:00 00:00 Intake Total 120 ml Output Total 600 ml Balance -480 ml Physical Examination AAOx2(-date) PERRLA FS EOMI MEASx4 FCCx4 L Hemiparesis (improving from post-op exam yesterday) dressing dry Lab, Micro, Other Results Last Impressions Head CT 06/17/17 0600 Signed Impressions: Service Date/Time: Saturday, June 17, 2017 04:19 - CONCLUSION: 1. Resection of right-sided intracranial mass with some residual hemorrhage in the operative bed around the right lateral ventricle and on the surface of the right hemisphere. There is edema and some mass effect with 1 cm right to left midline shift. Right ventriculostomy present with tip probably within the effaced right lateral ventricle. Pneumocephalus. Edwin Childs MD Chest X-Ray 06/15/17 0000 Signed Impressions: Service Date/Time: May 10:20 - CONCLUSION: 1. No acute cardiopulmonary findings. Harvinder Bryant MD Brain MRI 06/15/17 0000 Signed Impressions: Service Date/Time: May 12:47 - CONCLUSION: Slightly heterogeneous though fairly well circumscribed intensely enhancing mass in the right parietal region. Potentially arising in an intraventricular location. Differential considerations would primarily include tumors of ependymal, choroid plexus or glial origin. Metastatic disease would be an additional consideration felt less likely. Jeff Dunne MD Current Medications Medications (Trade) Dose Ordered Sig/Davi Route PRN Reason Start Time Stop Time Status Last Admin Dose Admin Atorvastatin Calcium (Lipitor) 20 mg DAILY PO 06/16/17 09:00 06/17/17 08:48 Levothyroxine Sodium (Synthroid) 50 mcg DAILY@0600 PO 06/16/17 06:00 06/17/17 06:24 Famotidine (Pepcid) 20 mg Q12HR PO 06/15/17 21:00 06/17/17 08:48 Ondansetron HCl (Zofran Inj) 4 mg Q6H PRN IV PUSH NAUSEA OR VOMITING 06/15/17 11:45 06/16/17 09:23 Albuterol/ Ipratropium (Duoneb Neb) 1 ampule Q4HR NEB PRN INH WHEEZING 06/15/17 11:45 Miscellaneous Information 1 Q361D XX 06/15/17 11:45 Chlorhexidine Gluconate (Chlorhexidine 2% Cloth) 3 pack Taper DAILY@04 TOP 06/16/17 04:00 06/12/18 03:59 06/17/17 04:00 Chlorhexidine Gluconate (Chlorhexidine 2% Cloth) 3 pack UNSCH PRN TOP HYGIENIC CARE 06/15/17 11:45 Morphine Sulfate (Morphine Inj) 2 mg Q2HR PRN IV PUSH Pain >6 06/15/17 17:30 06/16/17 09:23 Levetriacetam (Keppra) 500 mg Q12HR PO 06/15/17 21:00 06/17/17 08:47 Sodium Chloride (NS Flush) 2 ml UNSCH PRN IV FLUSH FLUSH AFTER USING IV ACCESS 06/15/17 17:15 Sodium Chloride (NS Flush) 2 ml BID IV FLUSH 06/15/17 21:00 06/17/17 08:47 Docusate Sodium (Colace) 100 mg BID PO 06/15/17 21:00 06/17/17 08:48 Magnesium Hydroxide (Milk Of Magnesia Liq) 30 ml DAILY PRN PO CONSTIPATION 06/15/17 17:15 Al Hydrox/Mg Hydrox/Simethicone (Mag-Al Plus Susp Liq) 30 ml Q6H PRN PO DYSPEPSIA 06/15/17 17:15 Promethazine HCl (Phenergan Inj) 25 mg Q4H PRN IM NAUSEA OR VOMITING 06/15/17 17:15 Labetalol HCl (Trandate Inj) 10 mg Q1H PRN IV PUSH SYS BP GREATER THAN 150 MMHG 06/15/17 17:15 06/17/17 04:55 Clonidine (Catapres) 0.1 mg Q6H PRN PO SYS BP GREATER THAN 170 MMHG 06/15/17 17:15 06/16/17 20:11 Acetaminophen (Tylenol) 650 mg Q4H PRN PO TEMPERATURE > 101.5 F 06/15/17 17:15 06/17/17 12:38 Menthol ([place] Tammy) 1 lozenge UNSCH PRN BUCCAL SORE THROAT 06/15/17 17:15 Acetaminophen/ Hydrocodone Bitart ([place] 5-325 Mg) 1 tab Q4H PRN PO pain 1-6 06/15/17 17:15 Dexamethasone Sodium Phosphate (Decadron Inj) 4 mg Q6H IV PUSH 06/16/17 22:00 06/17/17 10:18 Nicardipine HCl 25 mg/Sodium Chloride 250 ml @ 50 mls/hr TITRATE PRN IV Blood pressure management 06/16/17 18:30 Potassium Chloride/Sodium Chloride 1,000 ml @ 100 mls/hr Q10H IV 06/16/17 20:00 06/17/17 04:52 Potassium Chloride 100 ml @ 50 mls/hr Q2H PRN IV For Potassium 2.8 - 3.2 mEq/L 06/17/17 09:30 Potassium Bicarb/ Potassium Chloride (K-Lyte Cl Eff) 50 meq UNSCH PRN PO For Potassium 3.3 - 3.5 mEq/L 06/17/17 09:30 06/17/17 10:18 Potassium Chloride 100 ml @ 50 mls/hr Q2H PRN IV For Potassium 3.3 - 3.5 mEq/L 06/17/17 09:30 Magnesium Sulfate 4 gm/Sodium Chloride 100 ml @ 50 mls/hr UNSCH PRN IV For Magnesium 0.9 - 1.1 mg/dL 06/17/17 09:30 Magnesium Oxide (Mag-Ox) 800 mg UNSCH PRN PO For Magnesium 1.2 - 1.6 mg/dL 06/17/17 09:30 Magnesium Sulfate 2 gm/Sodium Chloride 100 ml @ 50 mls/hr UNSCH PRN IV For Magnesium 1.2 - 1.6 mg/dL 06/17/17 09:30 Potassium Phosphate (K-Phos) 2,000 mg Q4H PRN PO For Phosphorus < 2.5 mg/dL 06/17/17 09:30 Sodium Phosphate 30 mmol/Sodium Chloride 250 ml @ 42 mls/hr UNSCH PRN IV For Phosphorus < 2.5 mg/dL 06/17/17 09:30 Potassium Phosphate (K-Phos) 2,000 mg UNSCH PRN PO/TUBE SEE LABEL COMMENTS 06/17/17 09:30 Potassium Phosphate 30 mmol/ Sodium Chloride 260 ml @ 42 mls/hr UNSCH PRN IV SEE LABEL COMMENTS 06/17/17 09:30 06/17/17 13:33 Potassium Chloride 100 ml @ 50 mls/hr UNSCH PRN IV For Potassium 3.3 - 3.5 mEq/L 06/17/17 10:45 Potassium Chloride 100 ml @ 50 mls/hr Q2H PRN IV For Potassium 2.8 - 3.2 mEq/L 06/17/17 11:00 Laboratory Tests Test 06/15/17 10:00 06/16/17 03:56 06/16/17 06:15 06/16/17 16:32 Bedside Hemoglobin 16.3 G/DL Bedside Hematocrit 48.0 % Neutrophils (%) (Auto) 82.7 % Lymphocytes (%) (Auto) 13.5 % Monocytes (%) (Auto) 3.4 % Eosinophils (%) (Auto) 0.1 % Basophils (%) (Auto) 0.3 % Neutrophils # (Auto) 8.5 TH/MM3 Lymphocytes # (Auto) 1.4 TH/MM3 Monocytes # (Auto) 0.3 TH/MM3 Eosinophils # (Auto) 0.0 TH/MM3 Basophils # (Auto) 0.0 TH/MM3 CBC Comment DIFF FINAL Differential Comment Prothrombin Time 10.7 SEC Prothromb Time International Ratio 1.0 RATIO Activated Partial Thromboplast Time 21.2 SEC Bedside Sodium 143 MMOL/L Bedside Potassium 3.7 MMOL/L Bedside Chloride 101 MMOL/L Bedside Blood Urea Nitrogen 18 MG/DL Bedside Creatinine 0.9 MG/DL Bedside Glucose 159 MG/DL Total Creatine Kinase 56 U/L Troponin I LESS THAN 0.02 NG/ML Serum Osmolality 309 MOSM/KG Blood Urea Nitrogen 30 MG/DL Creatinine 1.33 MG/DL Random Glucose 179 MG/DL Calcium Level 9.5 MG/DL Phosphorus Level 2.2 MG/DL Magnesium Level 2.2 MG/DL Sodium Level 138 MEQ/L Potassium Level 3.5 MEQ/L Chloride Level 100 MEQ/L Carbon Dioxide Level 26.4 MEQ/L Nasal Screen MRSA (PCR) MRSA NOT DETECTED Blood Gas Puncture Site UNKNOWN Blood Gas Patient Temperature 98.6 Blood Gas HCO3 20 mmol/L Blood Gas Base Excess -3.6 mmol/L Blood Gas Oxygen Saturation 97 % Arterial Blood pH 7.44 Arterial Blood Partial Pressure CO2 30 mmHg Arterial Blood Partial Pressure O2 198 mmHg Arterial Blood Oxygen Content 22.3 Vol % Arterial Blood Carboxyhemoglobin 1.5 % Arterial Blood Methemoglobin 1.2 % Blood Gas Hemoglobin 16.1 G/DL Blood Gas Inspired Oxygen 55 % Test 06/16/17 18:00 06/17/17 04:47 06/17/17 10:20 White Blood Count 16.3 TH/MM3 Red Blood Count 3.74 MIL/MM3 Hemoglobin 12.0 GM/DL Hematocrit 36.3 % Mean Corpuscular Volume 96.9 FL Mean Corpuscular Hemoglobin 32.0 PG Mean Corpuscular Hemoglobin Concent 33.0 % Red Cell Distribution Width 13.2 % Platelet Count 206 TH/MM3 Mean Platelet Volume 9.8 FL Blood Urea Nitrogen 29 MG/DL Creatinine 0.88 MG/DL Random Glucose 169 MG/DL Calcium Level 8.0 MG/DL Sodium Level 145 MEQ/L Potassium Level 3.4 MEQ/L Chloride Level 110 MEQ/L Carbon Dioxide Level 24.3 MEQ/L Anion Gap 11 MEQ/L Estimat Glomerular Filtration Rate 64 ML/MIN Phosphorus Level 2.2 MG/DL Medical Decision Making Impression and Plan Procedures: 06/16: Right Craniotomy for Resection of Interventricular Mass (Dr. Gonzalez) A/P: Neuro Stable Continue EVD CT head 06/17 show post-op changes (Will hold of on treatment of MLS (hypertonics) given stable neuro-exam) Will defer to Dr. Gonzalez when to preform follow-up MRI Brain w/s con Recommend PT Pain Controlled Hudson Abbasi MD Jun 17, 2017 14:05
[2017-06-17] MEDS: MORPHINE SULFATE 4 MG/ML INJ IV PUSH PRN (17:07)
[2017-06-17] MEDS: ONDANSETRON HCL 4 MG/2 ML VIAL IV PUSH PRN (17:07)
[2017-06-18] VITALS (14 sets, daily range): BP systolic 112–156; BP diastolic 60–67; PULSE 54–89; RESP 15–26; TEMP 98.3–98.4; O2SAT 92–96
[2017-06-18] MEDS: cloNIDine HCL 0.1 MG TAB PO PRN (01:34)
[2017-06-18] MEDS: CHLORHEXIDINE GLUCONATE 2 % 1 PACK (2 CLOTHS) TOP SCH (03:42)
[2017-06-18] MEDS: DEXAMETHASONE SOD PHOS 4 MG/ML VIAL IV PUSH SCH ×4 (04:29→21:07)
[2017-06-18] MEDS: LABETALOL HCL 100 MG/20 ML VIAL IV PUSH PRN (04:30)
[2017-06-18] MEDS: LEVOTHYROXINE SODIUM 50 MCG TAB PO SCH (05:48)
[2017-06-18] MEDS: NS + KCL 20 MEQ INJ 1,000 ML IV SCH ×3 (06:14→15:37)
[2017-06-18] MEDS: SODIUM CHLORIDE 0.9% FLUSH 10 ML FLUSH IV FLUSH SCH ×2 (09:00→21:07)
[2017-06-18] MEDS: FAMOTIDINE 20 MG TAB PO SCH ×2 (09:06→21:07)
[2017-06-18] MEDS: ATORVASTATIN 20 MG TAB PO SCH (09:06)
[2017-06-18] MEDS: levETIRAcetam 500 MG TAB PO SCH ×2 (09:06→21:07)
[2017-06-18] MEDS: DOCUSATE SODIUM 100 MG CAP PO SCH ×2 (09:07→21:07)
--- NOTE | 2017-06-18 11:06 | HHI.CCPN ---
Subjective Remarks/Hospital Course 67 y/o woman has a several day headache and new ataxia associated with left arm weakness., slurred speech. Arrived as stroke alert and CT Head reveals 6.0 X 4.5 X 6.0 cm right hemispheric mass, largely involving lateral ventricle right side. Subfalcine shift right to left > 10 mm. Received Keppra, Decadron, and mannitol. 06/16: Breathing comfortably today. Speech clear. Persistent left side weakness and mild left facial droop. Minimal headache. 06/17: Lying in bed comfortably, no acute distress, L hemiparesis persists. No head ache today 06/18: No acute events overnight. EVD 85 mL drainage in 24 hours blood-tinged. No fever, WBC pending Objective Vital Signs Date Time Temp Pulse Resp B/P (MAP) Pulse Ox O2 Delivery O2 Flow Rate FiO2 06/18/17 10:00 74 06/18/17 09:05 95 21 06/18/17 08:00 98.3 20 135/63 (87) 156/67 (96) 06/18/17 07:00 Room Air 06/17/17 08:09 1.00 Intake and Output 06/18/17 06/18/17 06/19/17 08:00 16:00 00:00 Intake Total 889 ml Output Total 740 ml Balance 149 ml Result Diagram: 06/16/17 1800 06/17/17 0447 Objective Remarks Gen: Alert awake Head: Atraumatic. EVD in place with 85 ml output in 24 hours, blood tinged Neck: Supple, airway patent. Lungs: Clear, no wheezes or crackles. Heart: NL S1S2, no m,r. No JVD. Abdomen: Soft, no guarding. Extremities: Warm, well perfused. Neuro: Pupils 2 mm, reactive. Alert, conversant. No clonus. Protects airway, gag intact. Left arm, leg weaker, but with improving strength A/P Assessment and Plan Assessment: 1. Large right hemisphere mass. s/p Right Craniotomy and Resection 2. Right to left shift 3. Ataxia 4. Left hemiparesis 5. Hypokalemia Plan: -Mannitol q6h. Decadron q6h. 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 Gonzalez -Airway precautions. -Pepcid. -No chemical DVT px. -SCDs. -Electrolyte replacement per protocol. Replace potassium and phosphorus -Head of bed will be kept elevated at 30 degrees, Keppra for sz prophylaxis -Keep SBP <140 Overall impression: Large brain mass, with cytogenic edema. Followed by neurosurgery and s/p craniotomy and resection Level 3 PT/OT up to chair when ok with N/S Michi Aguilar MD Jun 18, 2017 11:06
--- NOTE | 2017-06-18 11:44 | HHI.NSPN ---
History Interval History 06/17/17: Patient is doing well. Patient reports no headaches. Patient is eating lunch. 06/18/17: Patient is doing better, strength much improved on left side. Patient worked with Physical Therapy. Tolerating Diet. Exam Results Vital Signs Date Time Temp Pulse Resp B/P (MAP) Pulse Ox O2 Delivery O2 Flow Rate FiO2 06/18/17 10:00 74 06/18/17 09:05 95 21 06/18/17 08:00 98.3 20 135/63 (87) 156/67 (96) 06/18/17 07:00 Room Air 06/17/17 08:09 1.00 Intake and Output 06/18/17 06/18/17 06/19/17 08:00 16:00 00:00 Intake Total 889 ml Output Total 740 ml Balance 149 ml Physical Examination AAOx2(-date) PERRLA FS EOMI MEASx4 FCCx4 L Hemiparesis (+3 to -4 / 5) dressing dry Lab, Micro, Other Results Current Medications Medications (Trade) Dose Ordered Sig/Davi Route PRN Reason Start Time Stop Time Status Last Admin Dose Admin Atorvastatin Calcium (Lipitor) 20 mg DAILY PO 06/16/17 09:00 06/18/17 09:06 Levothyroxine Sodium (Synthroid) 50 mcg DAILY@0600 PO 06/16/17 06:00 06/18/17 05:48 Famotidine (Pepcid) 20 mg Q12HR PO 06/15/17 21:00 06/18/17 09:06 Ondansetron HCl (Zofran Inj) 4 mg Q6H PRN IV PUSH NAUSEA OR VOMITING 06/15/17 11:45 06/17/17 17:07 Albuterol/ Ipratropium (Duoneb Neb) 1 ampule Q4HR NEB PRN INH WHEEZING 06/15/17 11:45 Miscellaneous Information 1 Q361D XX 06/15/17 11:45 Chlorhexidine Gluconate (Chlorhexidine 2% Cloth) 3 pack Taper DAILY@04 TOP 06/16/17 04:00 06/12/18 03:59 06/17/17 04:00 Chlorhexidine Gluconate (Chlorhexidine 2% Cloth) 3 pack UNSCH PRN TOP HYGIENIC CARE 06/15/17 11:45 Morphine Sulfate (Morphine Inj) 2 mg Q2HR PRN IV PUSH Pain >6 06/15/17 17:30 06/17/17 17:07 Levetriacetam (Keppra) 500 mg Q12HR PO 06/15/17 21:00 06/18/17 09:06 Sodium Chloride (NS Flush) 2 ml UNSCH PRN IV FLUSH FLUSH AFTER USING IV ACCESS 06/15/17 17:15 Sodium Chloride (NS Flush) 2 ml BID IV FLUSH 06/15/17 21:00 06/18/17 09:00 Docusate Sodium (Colace) 100 mg BID PO 06/15/17 21:00 06/18/17 09:07 Magnesium Hydroxide (Milk Of Magnesia Liq) 30 ml DAILY PRN PO CONSTIPATION 06/15/17 17:15 Al Hydrox/Mg Hydrox/Simethicone (Mag-Al Plus Susp Liq) 30 ml Q6H PRN PO DYSPEPSIA 06/15/17 17:15 Promethazine HCl (Phenergan Inj) 25 mg Q4H PRN IM NAUSEA OR VOMITING 06/15/17 17:15 Labetalol HCl (Trandate Inj) 10 mg Q1H PRN IV PUSH SYS BP GREATER THAN 150 MMHG 06/15/17 17:15 06/18/17 04:30 Clonidine (Catapres) 0.1 mg Q6H PRN PO SYS BP GREATER THAN 170 MMHG 06/15/17 17:15 06/18/17 01:34 Acetaminophen (Tylenol) 650 mg Q4H PRN PO TEMPERATURE > 101.5 F 06/15/17 17:15 06/17/17 12:38 Menthol ([place] Tammy) 1 lozenge UNSCH PRN BUCCAL SORE THROAT 06/15/17 17:15 Acetaminophen/ Hydrocodone Bitart ([place] 5-325 Mg) 1 tab Q4H PRN PO pain 1-6 06/15/17 17:15 Dexamethasone Sodium Phosphate (Decadron Inj) 4 mg Q6H IV PUSH 06/16/17 22:00 06/18/17 09:06 Nicardipine HCl 25 mg/Sodium Chloride 250 ml @ 50 mls/hr TITRATE PRN IV Blood pressure management 06/16/17 18:30 Potassium Chloride/Sodium Chloride 1,000 ml @ 100 mls/hr Q10H IV 06/16/17 20:00 06/18/17 06:14 Potassium Chloride 100 ml @ 50 mls/hr Q2H PRN IV For Potassium 2.8 - 3.2 mEq/L 06/17/17 09:30 Potassium Bicarb/ Potassium Chloride (K-Lyte Cl Eff) 50 meq UNSCH PRN PO For Potassium 3.3 - 3.5 mEq/L 06/17/17 09:30 06/17/17 10:18 Potassium Chloride 100 ml @ 50 mls/hr Q2H PRN IV For Potassium 3.3 - 3.5 mEq/L 06/17/17 09:30 Magnesium Sulfate 4 gm/Sodium Chloride 100 ml @ 50 mls/hr UNSCH PRN IV For Magnesium 0.9 - 1.1 mg/dL 06/17/17 09:30 Magnesium Oxide (Mag-Ox) 800 mg UNSCH PRN PO For Magnesium 1.2 - 1.6 mg/dL 06/17/17 09:30 Magnesium Sulfate 2 gm/Sodium Chloride 100 ml @ 50 mls/hr UNSCH PRN IV For Magnesium 1.2 - 1.6 mg/dL 06/17/17 09:30 Potassium Phosphate (K-Phos) 2,000 mg Q4H PRN PO For Phosphorus < 2.5 mg/dL 06/17/17 09:30 Sodium Phosphate 30 mmol/Sodium Chloride 250 ml @ 42 mls/hr UNSCH PRN IV For Phosphorus < 2.5 mg/dL 06/17/17 09:30 Potassium Phosphate (K-Phos) 2,000 mg UNSCH PRN PO/TUBE SEE LABEL COMMENTS 06/17/17 09:30 Potassium Phosphate 30 mmol/ Sodium Chloride 260 ml @ 42 mls/hr UNSCH PRN IV SEE LABEL COMMENTS 06/17/17 09:30 06/17/17 13:33 Potassium Chloride 100 ml @ 50 mls/hr UNSCH PRN IV For Potassium 3.3 - 3.5 mEq/L 06/17/17 10:45 Potassium Chloride 100 ml @ 50 mls/hr Q2H PRN IV For Potassium 2.8 - 3.2 mEq/L 06/17/17 11:[address] 06/17/17 0600 Signed Impressions: Service Date/Time: Saturday, June 17, 2017 04:19 - CONCLUSION: 1. Resection of right-sided intracranial mass with some residual hemorrhage in the operative bed around the right lateral ventricle and on the surface of the right hemisphere. There is edema and some mass effect with 1 cm right to left midline shift. Right ventriculostomy present with tip probably within the effaced right lateral ventricle. Pneumocephalus. Edwin Childs MD Chest X-Ray 06/15/17 0000 Signed Impressions: Service Date/Time: May 10:20 - CONCLUSION: 1. No acute cardiopulmonary findings. Harvinder Bryant MD Brain MRI 06/15/17 0000 Signed Impressions: Service Date/Time: May 12:47 - CONCLUSION: Slightly heterogeneous though fairly well circumscribed intensely enhancing mass in the right parietal region. Potentially arising in an intraventricular location. Differential considerations would primarily include tumors of ependymal, choroid plexus or glial origin. Metastatic disease would be an additional consideration felt less likely. Jeff Dunne MD Laboratory Tests Test 06/15/17 10:00 06/16/17 03:56 06/16/17 06:15 06/16/17 16:32 Bedside Hemoglobin 16.3 G/DL Bedside Hematocrit 48.0 % Neutrophils (%) (Auto) 82.7 % Lymphocytes (%) (Auto) 13.5 % Monocytes (%) (Auto) 3.4 % Eosinophils (%) (Auto) 0.1 % Basophils (%) (Auto) 0.3 % Neutrophils # (Auto) 8.5 TH/MM3 Lymphocytes # (Auto) 1.4 TH/MM3 Monocytes # (Auto) 0.3 TH/MM3 Eosinophils # (Auto) 0.0 TH/MM3 Basophils # (Auto) 0.0 TH/MM3 CBC Comment DIFF FINAL Differential Comment Prothrombin Time 10.7 SEC Prothromb Time International Ratio 1.0 RATIO Activated Partial Thromboplast Time 21.2 SEC Bedside Sodium 143 MMOL/L Bedside Potassium 3.7 MMOL/L Bedside Chloride 101 MMOL/L Bedside Blood Urea Nitrogen 18 MG/DL Bedside Creatinine 0.9 MG/DL Bedside Glucose 159 MG/DL Total Creatine Kinase 56 U/L Troponin I LESS THAN 0.02 NG/ML Serum Osmolality 309 MOSM/KG Blood Urea Nitrogen 30 MG/DL Creatinine 1.33 MG/DL Random Glucose 179 MG/DL Calcium Level 9.5 MG/DL Phosphorus Level 2.2 MG/DL Magnesium Level 2.2 MG/DL Sodium Level 138 MEQ/L Potassium Level 3.5 MEQ/L Chloride Level 100 MEQ/L Carbon Dioxide Level 26.4 MEQ/L Nasal Screen MRSA (PCR) MRSA NOT DETECTED Blood Gas Puncture Site UNKNOWN Blood Gas Patient Temperature 98.6 Blood Gas HCO3 20 mmol/L Blood Gas Base Excess -3.6 mmol/L Blood Gas Oxygen Saturation 97 % Arterial Blood pH 7.44 Arterial Blood Partial Pressure CO2 30 mmHg Arterial Blood Partial Pressure O2 198 mmHg Arterial Blood Oxygen Content 22.3 Vol % Arterial Blood Carboxyhemoglobin 1.5 % Arterial Blood Methemoglobin 1.2 % Blood Gas Hemoglobin 16.1 G/DL Blood Gas Inspired Oxygen 55 % Test 06/16/17 18:00 06/17/17 04:47 06/17/17 10:20 White Blood Count 16.3 TH/MM3 Red Blood Count 3.74 MIL/MM3 Hemoglobin 12.0 GM/DL Hematocrit 36.3 % Mean Corpuscular Volume 96.9 FL Mean Corpuscular Hemoglobin 32.0 PG Mean Corpuscular Hemoglobin Concent 33.0 % Red Cell Distribution Width 13.2 % Platelet Count 206 TH/MM3 Mean Platelet Volume 9.8 FL Blood Urea Nitrogen 29 MG/DL Creatinine 0.88 MG/DL Random Glucose 169 MG/DL Calcium Level 8.0 MG/DL Sodium Level 145 MEQ/L Potassium Level 3.4 MEQ/L Chloride Level 110 MEQ/L Carbon Dioxide Level 24.3 MEQ/L Anion Gap 11 MEQ/L Estimat Glomerular Filtration Rate 64 ML/MIN Phosphorus Level 2.2 MG/DL Medical Decision Making Impression and Plan Procedures: 06/16: Right Craniotomy for Resection of Interventricular Mass (Dr. Gonzalez) A/P: Neuro Stable Continue EVD CT head 06/17 show post-op changes PT on board Pain Controlled Continue Current Care Total Minutes: 16 Hudson Abbasi MD Jun 18, 2017 11:44
[2017-06-18 12:00] LABS: AUTOMATED NEUTROPHIL # 11.6 TH/MM3 (1.8-7.7); BASOPHIL % 0.1 % (0.0-2.0); EOSINOPHIL % 0.1 % (0.0-4.0); HEMATOCRIT 35.8 % (35.0-46.0); LYMPH % 5.9 % (9.0-44.0); LYMPHOCYTE # 0.8 TH/MM3 (1.0-4.8); MEAN CORPUSCULAR HEMOGLOBIN 32.2 PG (27.0-34.0); MEAN CORPUSCULAR HGB CONC 33.6 % (32.0-36.0); MONO % 6.1 % (0.0-8.0); NEUT % 87.8 % (16.0-70.0); PLATELET COUNT 159 TH/MM3 (150-450); RED BLOOD COUNT 3.73 MIL/MM3 (4.00-5.30); RED CELL DISTRIBUTION WIDTH 13.4 % (11.6-17.2); WHITE BLOOD COUNT 13.2 TH/MM3 (4.0-11.0)
[2017-06-18 12:01] LABS: HEMO FLAGS AUTO DIFF
[2017-06-18 12:30] LABS: SCAN/DIFF AUTO DIFF CONFIRMED
[2017-06-19] VITALS (13 sets, daily range): BP systolic 134–168; BP diastolic 63–72; PULSE 62–93; RESP 17–21; TEMP 97.5–98.4; O2SAT 93–99
[2017-06-19] MEDS: CHLORHEXIDINE GLUCONATE 2 % 1 PACK (2 CLOTHS) TOP SCH (03:39)
[2017-06-19] MEDS: DEXAMETHASONE SOD PHOS 4 MG/ML VIAL IV PUSH SCH (04:10)
[2017-06-19 05:44] LABS: AUTOMATED NEUTROPHIL # 7.9 TH/MM3 (1.8-7.7); BASOPHIL % 0.1 % (0.0-2.0); HEMATOCRIT 36.8 % (35.0-46.0); LYMPH % 9.7 % (9.0-44.0); LYMPHOCYTE # 0.9 TH/MM3 (1.0-4.8); MEAN CELL VOLUME 95.7 FL (80.0-100.0); MEAN CORPUSCULAR HEMOGLOBIN 31.9 PG (27.0-34.0); MEAN CORPUSCULAR HGB CONC 33.4 % (32.0-36.0); MONO % 5.2 % (0.0-8.0); PLATELET COUNT 150 TH/MM3 (150-450); RED BLOOD COUNT 3.84 MIL/MM3 (4.00-5.30); RED CELL DISTRIBUTION WIDTH 12.9 % (11.6-17.2); WHITE BLOOD COUNT 9.2 TH/MM3 (4.0-11.0)
[2017-06-19] MEDS: LEVOTHYROXINE SODIUM 50 MCG TAB PO SCH (05:44)
[2017-06-19 05:49] LABS: HEMO FLAGS AUTO DIFF
[2017-06-19 06:05] LABS: ALKALINE PHOSPHATASE 55 U/L (45-117); ALT (GPT) 29 U/L (10-53); ANION GAP 9 MEQ/L (5-15); AST (GOT) 22 U/L (15-37); BICARBONATE 23.5 MEQ/L (21.0-32.0); BLOOD UREA NITROGEN 16 MG/DL (7-18); CHLORIDE 110 MEQ/L (98-107); GLOMERULAR FILTRATION RATE 96 ML/MIN (>89); MAGNESIUM 2.5 MG/DL (1.5-2.5); SODIUM (NA) 142 MEQ/L (136-145); TOTAL BILIRUBIN ADULT 0.6 MG/DL (0.2-1.0)
[2017-06-19] MEDS: POTASSIUM PHOSPHATE MONOBASIC 500 MG TAB PO PRN ×2 (06:18→09:39)
--- NOTE | 2017-06-19 08:13 | HHI.CCPN ---
Subjective Remarks/Hospital Course 67 y/o woman has a several day headache and new ataxia associated with left arm weakness., slurred speech. Arrived as stroke alert and CT Head reveals 6.0 X 4.5 X 6.0 cm right hemispheric mass, largely involving lateral ventricle right side. Subfalcine shift right to left > 10 mm. Received Keppra, Decadron, and mannitol. 06/16: Breathing comfortably today. Speech clear. Persistent left side weakness and mild left facial droop. Minimal headache. 06/17: Lying in bed comfortably, no acute distress, L hemiparesis persists. No head ache today 06/18: No acute events overnight. EVD 85 mL drainage in 24 hours blood-tinged. No fever, WBC pending 06/19: no new events overnight. clinically improving. starting EVD clamp trials today per nsgy. Objective Vital Signs Date Time Temp Pulse Resp B/P (MAP) Pulse Ox O2 Delivery O2 Flow Rate FiO2 06/19/17 06:00 66 06/19/17 04:00 17 168/72 (104) 93 06/19/17 00:00 98.2 06/18/17 21:00 21 06/18/17 19:00 Room Air 06/17/17 08:09 1.00 Intake and Output 06/19/17 06/19/17 06/20/17 08:00 16:00 00:00 Intake Total 880 ml Output Total 2361 ml Balance -1481 ml Result Diagram: 06/19/17 0428 06/19/17 0428 Objective Remarks Gen: Alert awake Head: Atraumatic. EVD in place at 13ers3d Neck: Supple, airway patent. Lungs: Clear, no wheezes or crackles. Heart: NL S1S2, no m,r. No JVD. Abdomen: Soft, no guarding. Extremities: Warm, well perfused. Neuro: Pupils 2 mm, reactive. Alert, conversant. No clonus. Protects airway, gag intact. Left arm, leg weaker, but with improving strength A/P Assessment and Plan Assessment: 1. Large right hemisphere mass. s/p Right Craniotomy and Resection 2. Right to left shift 3. Ataxia 4. Left hemiparesis 5. Hypokalemia Plan: - Decadron q6h. 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 Carlos Wong. -No chemical DVT px. -SCDs. -Electrolyte replacement per protocol. Replace potassium and phosphorus -Head of bed will be kept elevated at 30 degrees, Keppra for sz prophylaxis -Keep SBP <140 - d/c cabrales - mobilize - challenge EVD - PT/OT consults. Overall impression: Large brain mass, with cytogenic edema. Followed by neurosurgery and s/p craniotomy and resection. clinically improving. challenge drain. Pepe Evans MD Jun 19, 2017 08:13
[2017-06-19 08:26] LABS: CORRECTED NUCLEATED RBC 1 /100 WBC (0-0); METAMYELOCYTES 1 % (0-1); MYELOCYTES 1 % (0-0); NEUTROPHIL # MANUAL DIFF 8.6 TH/MM3 (1.8-7.7); POLYS (SEG NEUTROPHILS) 92 % (16-70); WBC DIFF SAMPLE 100
[2017-06-19 08:27] LABS: PLATELET ESTIMATE SMEAR NORMAL (NORMAL); PLATELET MORPHOLOGY NORMAL (NORMAL); SCAN/DIFF FINAL DIFF MANUAL
--- NOTE | 2017-06-19 09:36 | HHI.NSPN ---
(Fortino Atkinson) History Chief Complaint: s/p right crani for mass resection. (Fortino Atkinson) Interval History 06/19: Pt awake and alert. Denies headache. No nausea or vomiting. Ventriculostomy remains in place at 5cm H20. (Fortino Atkinson) Review of Systems General: Negative for: fever, chills, insomnia Respiratory: Negative for: shortness of breath, cough, sputum Cardiovascular: Negative for: chest pain Gastrointestinal: Negative for: nausea, vomitting, diarrhea, constipation ( Fortino Atkinson) Exam Results Vital Signs Date Time Temp Pulse Resp B/P (MAP) Pulse Ox O2 Delivery O2 Flow Rate FiO2 06/19/17 08:25 96 21 06/19/17 06:00 66 06/19/17 04:00 17 168/72 (104) 06/19/17 00:00 98.2 06/18/17 19:00 Room Air 06/17/17 08:09 1.00 Intake and Output 06/19/17 06/19/17 06/20/17 08:00 16:00 00:00 Intake Total 880 ml 153 ml Output Total 2361 ml Balance -1481 ml 153 ml (Fortino Atkinson) Physical Examination Resp: CTA bilaterally Heart: NSR no murmurs Abd: Soft positive bs Skin: Incision clean and dry. No signs of infection. Muscle: Left hemiparesis. Moves right side well. Neuro: Pt awake and alert. Pupils equal 3mm bilaterally reactive bilaterally. Speech clear and appropriate. Ventriculostomy drain in place at 5cm H20 draining. (Fortino Atkinson) Lab, Micro, Other Results Last Impressions Head CT 06/17/17 0600 Signed Impressions: Service Date/Time: Saturday, June 17, 2017 04:19 - CONCLUSION: 1. Resection of right-sided intracranial mass with some residual hemorrhage in the operative bed around the right lateral ventricle and on the surface of the right hemisphere. There is edema and some mass effect with 1 cm right to left midline shift. Right ventriculostomy present with tip probably within the effaced right lateral ventricle. Pneumocephalus. Edwin Childs MD Chest X-Ray 06/15/17 0000 Signed Impressions: Service Date/Time: May 10:20 - CONCLUSION: 1. No acute cardiopulmonary findings. Harvinder Bryant MD Brain MRI 06/15/17 0000 Signed Impressions: Service Date/Time: May 12:47 - CONCLUSION: Slightly heterogeneous though fairly well circumscribed intensely enhancing mass in the right parietal region. Potentially arising in an intraventricular location. Differential considerations would primarily include tumors of ependymal, choroid plexus or glial origin. Metastatic disease would be an additional consideration felt less likely. Jeff Dunne MD Laboratory Tests Test 06/18/17 11:40 06/19/17 04:28 White Blood Count 13.2 TH/MM3 9.2 TH/MM3 Red Blood Count 3.73 MIL/MM3 3.84 MIL/MM3 Hemoglobin 12.0 GM/DL 12.3 GM/DL Hematocrit 35.8 % 36.8 % Mean Corpuscular Volume 96.0 FL 95.7 FL Mean Corpuscular Hemoglobin 32.2 PG 31.9 PG Mean Corpuscular Hemoglobin Concent 33.6 % 33.4 % Red Cell Distribution Width 13.4 % 12.9 % Platelet Count 159 TH/MM3 150 TH/MM3 Mean Platelet Volume 9.6 FL 10.3 FL Neutrophils (%) (Auto) 87.8 % 85.0 % Lymphocytes (%) (Auto) 5.9 % 9.7 % Monocytes (%) (Auto) 6.1 % 5.2 % Eosinophils (%) (Auto) 0.1 % 0.0 % Basophils (%) (Auto) 0.1 % 0.1 % Neutrophils # (Auto) 11.6 TH/MM3 7.9 TH/MM3 Lymphocytes # (Auto) 0.8 TH/MM3 0.9 TH/MM3 Monocytes # (Auto) 0.8 TH/MM3 0.5 TH/MM3 Eosinophils # (Auto) 0.0 TH/MM3 0.0 TH/MM3 Basophils # (Auto) 0.0 TH/MM3 0.0 TH/MM3 CBC Comment AUTO DIFF AUTO DIFF Differential Comment AUTO DIFF CONFIRMED FINAL DIFF MANUAL Differential Total Cells Counted 100 Neutrophils % (Manual) 92 % Lymphocytes % 4 % Monocytes % 2 % Neutrophils # (Manual) 8.6 TH/MM3 Metamyelocytes 1 % Myelocytes 1 % Nucleated Red Blood Cells 1 /100 WBC Platelet Estimate NORMAL Platelet Morphology Comment NORMAL Red Cell Morphology Comment NORMAL Blood Urea Nitrogen 16 MG/DL Creatinine 0.62 MG/DL Random Glucose 149 MG/DL Total Protein 6.6 GM/DL Albumin 3.0 GM/DL Calcium Level 7.9 MG/DL Phosphorus Level 1.7 MG/DL Magnesium Level 2.5 MG/DL Alkaline Phosphatase 55 U/L Aspartate Amino Transf (AST/SGOT) 22 U/L Alanine Aminotransferase (ALT/SGPT) 29 U/L Total Bilirubin 0.6 MG/DL Sodium Level 142 MEQ/L Potassium Level 4.0 MEQ/L Chloride Level 110 MEQ/L Carbon Dioxide Level 23.5 MEQ/L Anion Gap 9 MEQ/L Estimat Glomerular Filtration Rate 96 ML/MIN 06/19/17 06/19/17 06/20/17 15:00 23:00 07:00 Intake Total 153 ml Balance 153 ml IV Total 153 ml (Fortino Atkinson) Medical Decision Making Impression and Plan A: 67 y/o FM s/p right craniotomy for intraventricular Neoplasm resection on . Path pending. P: Continue to monitor Continue with current care Continue with ventriculostomy drain Continue with rehab efforts. Path pending further plan depending on results. (Fortino Atkinson) Attending Statement The exam, history, and the medical decision-making described in the above note were completed with the assistance of the mid-level provider. I reviewed and agree with the findings presented. I attest that I had a [id number] encounter with the patient on the same day, and personally performed and documented my assessment and findings in the medical record. Left hemiparesis significantly improved. Voiding in bathroom after cabrales removed. Doing very well post-operatively. Ventric at 20 cm with ICP 11 mm Hh. Will clamp ventric. Updated and sister at bedside. (Alfredo Gonzalez MD) Fortino Atkinson Jun 19, 2017 09:36 Alfredo Gonzalez MD Jun 19, 2017 17:36
[2017-06-19] MEDS: FAMOTIDINE 20 MG TAB PO SCH ×2 (09:39→19:47)
[2017-06-19] MEDS: DOCUSATE SODIUM 100 MG CAP PO SCH ×2 (09:39→19:47)
[2017-06-19] MEDS: levETIRAcetam 500 MG TAB PO SCH ×2 (09:39→19:47)
[2017-06-19] MEDS: ATORVASTATIN 20 MG TAB PO SCH (09:39)
[2017-06-19] MEDS: SODIUM CHLORIDE 0.9% FLUSH 10 ML FLUSH IV FLUSH SCH ×2 (09:40→19:47)
[2017-06-19] MEDS: DEXAMETHASONE 4 MG TAB PO SCH ×2 (11:49→18:23)
[2017-06-20] VITALS (12 sets, daily range): BP systolic 128–161; BP diastolic 65–76; PULSE 61–100; RESP 16–25; TEMP 97.7–98.9; O2SAT 94–100
[2017-06-20] MEDS: DEXAMETHASONE 4 MG TAB PO SCH ×4 (00:18→17:24)
[2017-06-20] MEDS: CHLORHEXIDINE GLUCONATE 2 % 1 PACK (2 CLOTHS) TOP SCH (04:00)
[2017-06-20] MEDS: LEVOTHYROXINE SODIUM 50 MCG TAB PO SCH (06:03)
[2017-06-20] MEDS: SODIUM CHLORIDE 0.9% FLUSH 10 ML FLUSH IV FLUSH SCH ×2 (08:45→19:58)
[2017-06-20] MEDS: DOCUSATE SODIUM 100 MG CAP PO SCH ×2 (08:46→19:58)
[2017-06-20] MEDS: ATORVASTATIN 20 MG TAB PO SCH (08:46)
[2017-06-20] MEDS: levETIRAcetam 500 MG TAB PO SCH ×2 (08:46→19:58)
[2017-06-20] MEDS: FAMOTIDINE 20 MG TAB PO SCH ×2 (08:46→19:58)
--- NOTE | 2017-06-20 09:04 | HHI.NSPN ---
(Fortino Atkinson) History Chief Complaint: s/p right crani for mass resection. (Fortino Atkinson) Interval History 06/19: Pt awake and alert. Denies headache. No nausea or vomiting. Ventriculostomy remains in place at 5cm H20. 06/20: Pt awake and alert. Denies headache. No nausea or vomiting. Ventriculostomy drain clamped. ICP 11. Stable left hemiparesis. (Fortino Atkinson) Review of Systems General: Negative for: fever, chills, insomnia Respiratory: Negative for: shortness of breath, cough, sputum Cardiovascular: Positive for: orthopnea, Negative for: chest pain Gastrointestinal: Negative for: nausea, vomitting, diarrhea, constipation ( Fortino Atkinson) Exam Results Vital Signs Date Time Temp Pulse Resp B/P (MAP) Pulse Ox O2 Delivery O2 Flow Rate FiO2 06/20/17 06:00 65 06/20/17 04:00 97.8 17 161/72 (101) 95 06/19/17 19:00 Room Air 06/19/17 08:25 21 06/17/17 08:09 1.00 Intake and Output 06/20/17 06/20/17 06/21/17 08:00 16:00 00:00 Intake Total 300 ml Balance 300 ml (Fortino Atkinson) Physical Examination Resp: CTA bilaterally Heart: NSR no murmurs Abd: Soft positive bs Skin: Incision clean and dry. No signs of infection. Muscle: Left hemiparesis. Moves right side well. Neuro: Pt awake and alert. Pupils equal 3mm bilaterally reactive bilaterally. Speech clear and appropriate. Ventriculostomy drain clamped. ICP 11. (Fortino Atkinson) Lab, Micro, Other Results Last Impressions Head CT 06/17/17 0600 Signed Impressions: Service Date/Time: Monday, June 17, 2017 04:19 - CONCLUSION: 1. Resection of right-sided intracranial mass with some residual hemorrhage in the operative bed around the right lateral ventricle and on the surface of the right hemisphere. There is edema and some mass effect with 1 cm right to left midline shift. Right ventriculostomy present with tip probably within the effaced right lateral ventricle. Pneumocephalus. Edwin Childs MD Chest X-Ray 06/15/17 0000 Signed Impressions: Service Date/Time: May 10:20 - CONCLUSION: 1. No acute cardiopulmonary findings. Harvinder Bryant MD Brain MRI 06/15/17 0000 Signed Impressions: Service Date/Time: May 12:47 - CONCLUSION: Slightly heterogeneous though fairly well circumscribed intensely enhancing mass in the right parietal region. Potentially arising in an intraventricular location. Differential considerations would primarily include tumors of ependymal, choroid plexus or glial origin. Metastatic disease would be an additional consideration felt less likely. Jeff Dunne MD 06/20/17 06/20/17 06/21/17 15:00 23:00 07:00 Intake Total 300 ml Balance 300 ml Intake Oral 300 ml # Voids 3 (Fortino Atkinson) Medical Decision Making Impression and Plan A: 67 y/o FM s/p right craniotomy for intraventricular Neoplasm resection on . Path pending. P: Continue to monitor Continue with current care Continue with ventriculostomy drain clamping. Continue with rehab efforts. Path pending further plan depending on results. (Fortino Atkinson) Attending Statement The exam, history, and the medical decision-making described in the above note were completed with the assistance of the mid-level provider. I reviewed and agree with the findings presented. I attest that I had a [id number] encounter with the patient on the same day, and personally performed and documented my assessment and findings in the medical record. Neurologic examination stable and ICPs normal with the ventricular clamp for 24 hours. We' ll remove ventriculostomy and transferred to the floor. Patient and her requested discharge home when ready with home therapy rather than inpatient rehabilitation placement. (Alfredo Gonzalez MD) Fortino Atkinson Jun 20, 2017 09:03 Alfredo Gonzalez MD Jun 20, 2017 16:39
[2017-06-20] MEDS ORDERED: LIDOCAINE 2%/EPINEPHrine 1:100,000 20ML MDV INFIL ONE (10:30)
--- NOTE | 2017-06-20 11:44 | HHI.CCPN ---
Subjective Remarks/Hospital Course 67 y/o woman has a several day headache and new ataxia associated with left arm weakness., slurred speech. Arrived as stroke alert and CT Head reveals 6.0 X 4.5 X 6.0 cm right hemispheric mass, largely involving lateral ventricle right side. Subfalcine shift right to left > 10 mm. Received Keppra, Decadron, and mannitol. 06/16: Breathing comfortably today. Speech clear. Persistent left side weakness and mild left facial droop. Minimal headache. 06/17: Lying in bed comfortably, no acute distress, L hemiparesis persists. No head ache today 06/18: No acute events overnight. EVD 85 mL drainage in 24 hours blood-tinged. No fever, WBC pending 06/19: no new events overnight. clinically improving. starting EVD clamp trials today per nsgy. 06/20: no acute events. patient states she is "happy" about her progress. EVD removed today. Objective Vital Signs Date Time Temp Pulse Resp B/P (MAP) Pulse Ox O2 Delivery O2 Flow Rate FiO2 06/20/17 10:00 88 06/20/17 07:00 94 Room Air 06/20/17 04:00 97.8 17 161/72 (101) 06/19/17 08:25 21 06/17/17 08:09 1.00 Intake and Output 06/20/17 06/20/17 06/21/17 08:00 16:00 00:00 Intake Total 300 ml Balance 300 ml Result Diagram: 06/19/17 0428 06/19/17 0428 Objective Remarks Gen: Alert awake Head: Atraumatic. Neck: Supple, airway patent. Lungs: unlabored. Heart: RRR Abdomen: Soft, no guarding. Extremities: Warm, well perfused. Neuro: Pupils 2 mm, reactive. Alert, conversant. No clonus. Protects airway, gag intact. Left arm, leg weaker, but with improving strength A/P Assessment and Plan Assessment: 1. Large right hemisphere mass. s/p Right Craniotomy and Resection 2. Right to left shift 3. Ataxia 4. Left hemiparesis 5. Hypokalemia Plan: - Decadron q6h. 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 Carlos Wong. -No chemical DVT px. -SCDs. -Head of bed will be kept elevated at 30 degrees, Keppra for sz prophylaxis - mobilize - PT/OT consults. Overall impression: Large brain mass, with cytogenic edema. Followed by neurosurgery and s/p craniotomy and resection. clinically improving. drain removed. discussed with neurosurgery, plan for transfer to floor this afternoon or early tomorrow. critical care medicine will sign off. Pepe Evans MD Jun 20, 2017 11:44
[2017-06-21 00:53] VITALS: BP 138/73; PULSE 68; RESP 18; TEMP 98.1; O2SAT 93
[2017-06-21] MEDS: CHLORHEXIDINE GLUCONATE 2 % 1 PACK (2 CLOTHS) TOP SCH (03:03)
[2017-06-21] MEDS: LEVOTHYROXINE SODIUM 50 MCG TAB PO SCH (06:11)
[2017-06-21 08:00] VITALS: BP 134/65; PULSE 90; RESP 20; TEMP 97.4; O2SAT 98
[2017-06-21 08:22] VITALS: O2SAT 93
[2017-06-21] MEDS: FAMOTIDINE 20 MG TAB PO SCH (09:12)
[2017-06-21] MEDS: DEXAMETHASONE 4 MG TAB PO SCH (09:12)
[2017-06-21] MEDS: levETIRAcetam 500 MG TAB PO SCH (09:12)
[2017-06-21] MEDS: DOCUSATE SODIUM 100 MG CAP PO SCH (09:13)
[2017-06-21] MEDS: ATORVASTATIN 20 MG TAB PO SCH (09:13)
[2017-06-21] MEDS: SODIUM CHLORIDE 0.9% FLUSH 10 ML FLUSH IV FLUSH SCH (09:14)
[2017-06-21] MEDS ORDERED: LEVE500 PO (09:37)
[2017-06-21] MEDS ORDERED: DEXA4TAB PO (09:37)
--- NOTE | 2017-06-21 09:40 | HHI.FF ---
Face to Face Verification Diagnosis: (1) Intracranial mass Physical Therapy Order: Evaluate and Treat, Improve ambulation, Strength and gait training Home Health Nursing Order: Wound care and dressing changes Nursing assessment with vital signs I have seen patient Jessa Martinez on 06/21/17. My clinical findings support the need for the requested home health care services because: Deconditioned w/ increased weakness High risk of falls I certify that my clinical findings support that this patient is homebound because: Post-op weakness Unsteady gait/balance Unable to use public transportation Fortino Atkinson Jun 21, 2017 9:40 am
[2017-06-21] MEDS ORDERED: WALKER WHEELS/F1 MIS (09:41)
== END 2017-06-21 12:00 | disposition home health service (06) | DRG 25 ==
LOC: NEPD 09:55 → NEDA 11:36 → N03A 14:14 → N05A 06-20 20:40
PROVIDERS: ADMIT Hospitalist; ATTEND Hospitalist
PROC: 009630Z Drainage of Cerebral Ventricle with Drainage Device, Percutaneous Approach (ICD-10-PCS; 2017-06-16)
PROC: 00B60ZZ Excision of Cerebral Ventricle, Open Approach (ICD-10-PCS; principal; 2017-06-16 12:53)
DX: D32.0 Benign neoplasm of cerebral meninges (principal); G93.6 Cerebral edema; G81.94 Hemiplegia, unspecified affecting left nondominant side; E03.9 Hypothyroidism, unspecified; E78.5 Hyperlipidemia, unspecified; E87.6 Hypokalemia; I10 Essential (primary) hypertension; K21.9 Gastro-esophageal reflux disease without esophagitis; M81.0 Age-related osteoporosis without current pathological fracture; R29.810 Facial weakness; Z79.899 Other long term (current) drug therapy; Z87.891 Personal history of nicotine dependence
CPT/HCPCS: 70450; 70553; 71010; 80048; 80053; 82435; 82550; 82565; 82805; 82947; 82948; 83735; 83930; 84100; 84132; 84295; 84484; 84520; 85007; 85025; 85027; 85610; 85730; 86850; 86900; 86901; 86902; 87641; 88307; 88331; 93005; 94150; 96374; 96375; A9579; C1713; J0131; J1100; J1170; J1580; J1953; J2150; J2270; J2370; J2405; J3010; J3370; J3480; J7030; J7050; J8540

== ENCOUNTER 2018-09-21 17:32 | Inpatient (IN) ==
[2018-09-21] MEDS ORDERED: Etomidate Inj 40 MG/20 ML Vial IV.PUSH ONE (17:33)
[2018-09-21] MEDS ORDERED: Succinylcholine Inj 200 MG/10 ML Vial ONE (17:33)
[2018-09-21 17:59] LABS: Baso # (Auto) 0.1 th/mm3 (0.0-0.2); Baso % (Auto) 0.4 % (0.0-2.0); Eos # (Auto) 0.1 th/mm3 (0.0-0.4); Eos % (Auto) 0.6 % (0.0-4.0); Hemoglobin 14.8 gm/dL (11.6-15.3); Lymph # (Auto) 3.7 th/mm3 (1.0-4.8); Lymph % (Auto) 27.9 % (9.0-44.0); Mean Corpuscular Hemoglobin 32.9 pg (27.0-34.0); Mean Corpuscular Volume 99.8 fL (80.0-100.0); Mono # (Auto) 0.7 th/mm3 (0.0-0.9); Mono % (Auto) 5.4 % (0.0-8.0); Neut # (Auto) 8.7 th/mm3 (1.8-7.7); Neut % (Auto) 65.7 % (16.0-70.0); Platelet Count 257 th/mm3 (150-450); Red Blood Count 4.51 mil/mm3 (4.00-5.30); Red Cell Distribution Width 14.1 % (11.6-17.2); White Blood Count 13.2 th/mm3 (4.0-11.0)
--- NOTE | 2018-09-21 18:07 | CT ---
EXAM DATE: 09/21/2018 5:58 PM EST AGE/SEX: 68 years / Female INDICATIONS: Stroke alert; non-responsive. CLINICAL DATA: This is the patient's initial encounter. Patient reports that signs and symptoms have been present for 1 day and indicates a pain score of Nonresponsive. MEDICAL/SURGICAL HISTORY: Non-responsive. Non-responsive. RADIATION DOSE: 56.35 CTDI (mGy) COMPARISON: POI, CT BRAIN W/O CONTRAST, 08/28/2017. . TECHNIQUE: CT of the head without contrast. Using automated exposure control and adjustment of the mA and/or kV according to patient size, radiation dose was kept as low as reasonably achievable to ob tain optimal diagnostic quality images. DICOM format image data is available electronically for revi ew and comparison. FINDINGS: There is encephalomalacia in the posterior parietal region and temporal lobe from previous tumor rese ction and previous infarct. No new areas of infarction, mass effect or midline shift is present. No h emorrhage. Prior right-sided craniotomy. CONCLUSION: 1. Right-sided posterior encephalomalacia as above. No new infarct or hemorrhage identified. 2. Findings called to Dr. Doyle at the time of dictation. . Electronically signed by: Edwin Childs MD Board Certified Radiologist 09/21/2018 6:06 PM EST
--- NOTE | 2018-09-21 18:11 | CT ---
EXAM DATE: 09/21/2018 6:05 PM EST AGE/SEX: 68 years / Female INDICATIONS: Stroke alert; non-responsive. CLINICAL DATA: This is the patient's initial encounter. Patient reports that signs and symptoms have been present for 1 day and indicates a pain score of Nonresponsive. MEDICAL/SURGICAL HISTORY: Non-responsive. Non-responsive. RADIATION DOSE: 10.38 CTDI (mGy) ; Combined studies COMPARISON: No prior exams available for comparison. TECHNIQUE: Volumetric scanning was performed using a multi-row detector CT scanner during bolus infu terry of 96 ml Visipaque 320 (iodixanol) nonionic water-soluble contrast as a cumulative dose for mul tiple exams. The data was post processed with a variety of visualization algorithms including full volume maximum intensity projection, multi-planar sliding thin slab reformation, curved planar reform ation, and surface rendering techniques. Using automated exposure control and adjustment of the mA a nd/or kV according to patient size, radiation dose was kept as low as reasonably achievable to obtain optimal diagnostic quality images. DICOM format image data is available electronically for review a nd comparison. FINDINGS: There is excellent visualization of the major intracranial arteries out to the second-order branch ve ssels. There is no evidence for aneurysm, vessel truncation or stenosis, and no evidence for vascula r malformation. CONCLUSION: 1. Negative CTA head. 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 2. Findings called to Dr. Lea at the time of dictation. Electronically signed by: Edwin Childs MD Board Certified Radiologist 09/21/2018 6:10 PM EST
[2018-09-21 18:13] LABS: Alanine Aminotransferase 34 U/L (10-53); Albumin 4.4 g/dL (3.4-5.0); Anion Gap 20 meq/L (5-15); Aspartate Aminotransferase 23 U/L (15-37); Blood Urea Nitrogen 21 mg/dL (7-18); Calcium 8.9 mg/dL (8.5-10.1); Carbon Dioxide 17.6 meq/L (21.0-32.0); Chloride 104 meq/L (98-107); Glomerular Filtration Rate 43 mL/min (>89); Glucose,Random 214 mg/dL (74-106); Potassium 3.4 meq/L (3.5-5.1); Sodium 142 meq/L (136-145)
[2018-09-21 18:16] LABS: Activated Partial Thrombo Time 22.7 sec (23.4-31.7)
[2018-09-21 18:17] LABS: Alkaline Phosphatase 73 U/L (45-117)
[2018-09-21 18:18] LABS: Creatine Kinase 89 U/L (26-192)
--- NOTE | 2018-09-21 18:30 | ED ---
HPI General Chief Complaint: Stroke Alert Stated Complaint: Stroke Alert Time Seen by Provider: 09/21/18 17:39 Source: family and EMS Mode of arrival: EMS Limitations: altered mental status History of Present Illness Time: 15:00 Last Observed Normal: 14:00 Timing confirmed by: spouse Location: Reports speech, left arm and left leg History of same: Yes Severity: severe Quality: Reports weak Relieving factors: none Exacerbating factors: none Context: Reports gradual onset (It started with a headache followed by dizziness and vomiting followed by the weakness. It proceeded over the course of 1-2 hours.) On Anticoagulants: No Associated symptoms: Reports headaches, nausea/vomiting and seizures Treatments Prior to Arrival: Reports oxygen (She was being bagged by EMS on arrival) and other Related Data Home Medications Medication Instructions Recorded Confirmed atorvastatin 60 mg PO DAILY 09/21/18 09/21/18 levothyroxine [Synthroid] 75 mcg PO DAILY 09/21/18 09/21/18 triamterene See Label Instructions .ROUTE 09/21/18 09/21/18 .COMPLEX Allergies Allergy/AdvReac Type Severity Reaction Status Date / Time Sulfa (Sulfonamide Allergy Mild HEADACHE Verified 09/21/18 17:35 Antibiotics) Review of Systems ROS Unobtainable ROS Unobtainable: unobtainable due to mental status [facility] Medical History Medical History Brain tumor (Acute) HTN (hypertension) (Acute) Social History Social History Substance History: No History of Abuse Second Hand Smoke Exposure: No Smoking Status: Former smoker How Often Do You Have a Drink Containing Alcohol: Monthly or less Recent Travel in [facility] within the Last 8 Weeks: No Recent Out of Country Travel within the Last 8 Weeks: No Immunization History Tetanus Immunization: Unable to Assess Exam Const General: healthy appearing and other (Respirations were being supported by bag valve mask per EVAC.) [facility] Head: normal to inspection, normocephalic and atraumatic Eyes Alignment and Position: alignment normal Conjunctivae: conjunctivae normal Sclera: sclerae normal Pupils: PERRL and pupil size (1) bilaterally EOM: EOM intact bilaterally Neck Neck: normal visual inspection, no lymphadenopathy and no meningeal signs Chest Chest: normal inspection of the chest Resp Effort & Inspection: other (Decreased respiratory effort) Auscultation: clear to auscultation bilaterally Cardio Rate: regular rate Rhythm: regular rhythm Back/Spine/Pelvis Cervical Spine: cervical ROM normal Thoracic/Lumbar Spine: thoraco-lumbar ROM normal Skin General: no rashes or lesions noted, turgor normal and dry skin Neuro General: obtunded Motor: other (Flaccid on the left) Extrem General: normal to inspection and full ROM Psych Appearance: grossly normal Mental Status: mental status grossly normal Speech and Movement: speech and movement normal Mood: congruent mood Affect: normal affect Attitude: cooperative Thought Process: normal Thought Content: normal Judgment: judgment good Procedures Intubation Time Out Performed: Yes Sedative: etomidate Mg Given: 20 Paralytic: succinylcholine Mg Given: 100 Laryngoscope: Prajapati ET Tube Size: 7.5 ET Tube Uncuffed: Yes Tube Secured Depth (cm): 22 Tube Secured Location: lips Tube Placement Confirmation: visualized tube passing through cords and equal breath sounds bilaterally Patient Tolerated Procedure: well Intubation Complications: other (subsequently became dislodged.) Course Consultations Consultation #1: Dr. Lea, neurology Consultation #2: Dr. Aguirre Initial Documented Vital Signs Pulse Oximetry 98 09/21/18 17:34 Last Documented Vital Signs Temperature 98.8 F 09/22/18 08:00 Pulse Rate 77 09/22/18 10:00 Respiratory Rate 16 09/22/18 10:00 Blood Pressure 111/59 L 09/22/18 10:00 Pulse Oximetry 100 09/22/18 10:00 Critical Care Time Critical Care Time: Yes Total Critical Care Time: 45 Attestation: Time to perform other separately billable procedures was not included in the critical care time. My time did not include minutes spent treating any other patients simultaneously or on activities that did not directly contribute to the patient's treatment. The services I provided to this patient were to treat and/or prevent clinically significant deterioration due to stroke alert, coma I provided critical care services requiring my management, as noted below: Chart data review, documentation time, medication orders and management, vital sign assessments/reviewing monitor data, ordering and reviewing lab tests, ordering and interpreting/reviewing x-rays and diagnostic studies, care of the patient and discussion of the patient with the admitting physicians NIH Stroke Scale NIH Stroke Scale Level of Consciousness: 3-Coma / Unresponsive Orientation Questions: 2-Neither task correct Responds to Commands: 2-Neither task correct Gaze Eye Movement: 0-Horizontal movement WNL Visual Ramos: 1-Partial hemianopia Facial Movement: 0-Normal Motor Functions Arm LEFT: UN-Amputated/Joint fusion Motor Functions Arm RIGHT: UN-Amputated/Joint fusion Motor Functions Leg LEFT: UN-Amputated/Joint fusion Motor Functions Leg RIGHT: UN-Amputated/Joint fusion Limb Ataxia: UN-Amputated/Joint fusion Sensory Loss: 2-Severe sensory loss Best Language: 3-Mute or global aphasia Articulation: UN-Intubated / Barriers Extinction or Inattention Sensory: 2-Loss 2 modalities Total: 15 Medical Decision Making MDM Narrative Medical decision making narrative: Patient presented to us as a stroke alert. Her symptoms started with a headache followed by dizziness and vomiting followed by left-sided weakness. The rescue squad was called following the onset of headache followed by dizziness and vomiting. The weakness started after the arrival of the first responders. On arrival here, the patient was being bagged by EMS because of poor respiratory effort following a seizure. Preparations were made to intubate the patient. The patient was successfully intubated with good breath sounds heard bilaterally and oxygenation of 100%. However, the ET tube apparently became dislodged because she subsequently became hypoxic. The tube was removed and the patient was noted to have spontaneous respirations with oxygen saturation in the 90s. Therefore, she was not reintubated. A stroke alert was initiated. She was taking emergently to CT. The CT shows encephalomalacia on the right secondary to her previous craniotomy and tumor resection. The radiologist believes that she has also had a previous stroke in that same location. There is no bleed on the CT. Dr. Lea was called and is aware of the patient. Because of her previous brain tumor and because of the seizure in route, she will not be treated with TPA. The patient remains obtunded. However, her sats have remained 100% on a nonrebreather mask. Her other vital signs have remained stable. She will need to be admitted to the intensive care unit. Dr. Aguirre has asked that I intubate the patient because of her GCS. He is concerned about possible aspiration. 6:40 PM We were gathering everything together to intubate this patient. I had not been in the room for several minutes. When I went in to speak to the about the intubation, he reported that the patient was now talking to him. I have reevaluated her. She is now awake, alert and fully oriented. She also now is able to squeeze my hand with her left hand. She continues to have weakness of the left leg. She can barely lift it up off the bed and it falls immediately back to the bed. Her symptoms are markedly improved. Medical Screen Exam Complete: Yes Emergency Medical Condition: Yes Differential Diagnosis Differential Diagnosis: Differential diagnosis includes but is not limited to TIA, CVA, brain tumor, migraine, anxiety Medical Records Medical records reviewed: Yes I reviewed the patient's medical records. Patient presented here in May 2017 with the exact same symptoms. She was found to have a brain tumor which was treated with resection, prophylactic Keppra and Decadron. Lab Data Lab results reviewed: Yes I reviewed the patient's lab results. Result diagrams: 09/22/18 03:40 09/22/18 03:40 Lab Results 09/21/18 09/21/18 09/21/18 Range/Units 17:30 17:30 17:30 WBC 13.2 H (4.0-11.0) th/mm3 RBC 4.51 (4.00-5.30) mil/mm3 Hgb 14.8 (11.6-15.3) gm/dL POC Hgb (Calc) 16.0 H (11.6-15.3) g/dL Hct 45.0 (35.0-46.0) % POC Hct 47.0 H (35-46.0) % MCV 99.8 (80.0-100.0) fL MCH 32.9 (27.0-34.0) pg MCHC 33.0 (32.0-36.0) % RDW 14.1 (11.6-17.2) % Plt Count 257 (150-450) th/mm3 MPV 10.0 (7.0-11.0) fL Neut % (Auto) 65.7 (16.0-70.0) % Lymph % (Auto) 27.9 (9.0-44.0) % [place] % (Auto) 5.4 (0.0-8.0) % Eos % (Auto) 0.6 (0.0-4.0) % Baso % (Auto) 0.4 (0.0-2.0) % Neut # (Auto) 8.7 H (1.8-7.7) th/mm3 Lymph # (Auto) 3.7 (1.0-4.8) th/mm3 [place] # (Auto) 0.7 (0.0-0.9) th/mm3 Eos # (Auto) 0.1 (0.0-0.4) th/mm3 Baso # (Auto) 0.1 (0.0-0.2) th/mm3 WBC Differential . Differential Comment Auto diff final PT 10.0 (9.8-11.6) sec INR 1.0 Ratio APTT 22.7 L (23.4-31.7) sec POC Sodium 143 (137-144) mmol/L Sodium 142 (136-145) meq/L POC Potassium 3.4 L (3.6-5.0) mmol/L Potassium 3.4 L (3.5-5.1) meq/L POC Chloride 105 (102-111) mmol/L Chloride 104 (98-107) meq/L Carbon Dioxide 17.6 L (21.0-32.0) meq/L Anion Gap 20 H (5-15) meq/L POC BUN 20 (5-21) mg/dL BUN 21 H (7-18) mg/dL Creatinine 1.24 H (0.50-1.00) mg/dL POC Creatinine 0.8 (0.6-1.3) mg/dL Estimated GFR 43 L (>89) mL/min POC Glucose 207 H (68-110) mg/dL Random Glucose 214 H (74-106) mg/dL Calcium 8.9 (8.5-10.1) mg/dL Phosphorus (2.5-4.9) mg/dL Magnesium (1.5-2.5) mg/dL Total Bilirubin 0.6 (0.2-1.0) mg/dL AST 23 (15-37) U/L ALT 34 (10-53) U/L Alkaline Phosphatase 73 (45-117) U/L Total Creatine Kinase 89 (26-192) U/L Troponin I Less than 0.02 L (0.02-0.05) ng/mL Total Protein 8.0 (6.4-8.2) g/dL Albumin 4.4 (3.4-5.0) g/dL Nasal Screen MRSA (PCR) (Negative) Phenytoin (10.0-20.0) mcg/mL 09/21/18 09/22/18 09/22/18 Range/Units 23:02 03:40 03:40 WBC 11.5 H (4.0-11.0) th/mm3 RBC 4.49 (4.00-5.30) mil/mm3 Hgb 14.4 (11.6-15.3) gm/dL POC Hgb (Calc) (11.6-15.3) g/dL Hct 43.5 (35.0-46.0) % POC Hct (35-46.0) % MCV 96.9 (80.0-100.0) fL MCH 32.2 (27.0-34.0) pg MCHC 33.2 (32.0-36.0) % RDW 13.7 (11.6-17.2) % Plt Count 189 (150-450) th/mm3 MPV 10.1 (7.0-11.0) fL Neut % (Auto) 80.5 H (16.0-70.0) % Lymph % (Auto) 11.1 (9.0-44.0) % [place] % (Auto) 7.8 (0.0-8.0) % Eos % (Auto) 0.1 (0.0-4.0) % Baso % (Auto) 0.5 (0.0-2.0) % Neut # (Auto) 9.3 H (1.8-7.7) th/mm3 Lymph # (Auto) 1.3 (1.0-4.8) th/mm3 [place] # (Auto) 0.9 (0.0-0.9) th/mm3 Eos # (Auto) 0.0 (0.0-0.4) th/mm3 Baso # (Auto) 0.1 (0.0-0.2) th/mm3 WBC Differential . Differential Comment Auto diff final PT (9.8-11.6) sec INR Ratio APTT (23.4-31.7) sec POC Sodium (137-144) mmol/L Sodium 144 (136-145) meq/L POC Potassium (3.6-5.0) mmol/L Potassium 3.3 L (3.5-5.1) meq/L POC Chloride (102-111) mmol/L Chloride 105 (98-107) meq/L Carbon Dioxide 30.8 D (21.0-32.0) meq/L Anion Gap 8 (5-15) meq/L POC BUN (5-21) mg/dL BUN 20 H (7-18) mg/dL Creatinine 0.83 (0.50-1.00) mg/dL POC Creatinine (0.6-1.3) mg/dL Estimated GFR 68 L (>89) mL/min POC Glucose (68-110) mg/dL Random Glucose 127 H (74-106) mg/dL Calcium 8.5 (8.5-10.1) mg/dL Phosphorus 3.6 (2.5-4.9) mg/dL Magnesium 2.2 (1.5-2.5) mg/dL Total Bilirubin 0.9 (0.2-1.0) mg/dL AST 32 (15-37) U/L ALT 32 (10-53) U/L Alkaline Phosphatase 66 (45-117) U/L Total Creatine Kinase (26-192) U/L Troponin I (0.02-0.05) ng/mL Total Protein 7.3 D (6.4-8.2) g/dL Albumin 4.1 (3.4-5.0) g/dL Nasal Screen MRSA (PCR) Not detected (Negative) Phenytoin (10.0-20.0) mcg/mL 09/22/18 Range/Units 03:40 WBC (4.0-11.0) th/mm3 RBC (4.00-5.30) mil/mm3 Hgb (11.6-15.3) gm/dL POC Hgb (Calc) (11.6-15.3) g/dL Hct (35.0-46.0) % POC Hct (35-46.0) % MCV (80.0-100.0) fL MCH (27.0-34.0) pg MCHC (32.0-36.0) % RDW (11.6-17.2) % Plt Count (150-450) th/mm3 MPV (7.0-11.0) fL Neut % (Auto) (16.0-70.0) % Lymph % (Auto) (9.0-44.0) % [place] % (Auto) (0.0-8.0) % Eos % (Auto) (0.0-4.0) % Baso % (Auto) (0.0-2.0) % Neut # (Auto) (1.8-7.7) th/mm3 Lymph # (Auto) (1.0-4.8) th/mm3 [place] # (Auto) (0.0-0.9) th/mm3 Eos # (Auto) (0.0-0.4) th/mm3 Baso # (Auto) (0.0-0.2) th/mm3 WBC Differential Differential Comment PT (9.8-11.6) sec INR Ratio APTT (23.4-31.7) sec POC Sodium (137-144) mmol/L Sodium (136-145) meq/L POC Potassium (3.6-5.0) mmol/L Potassium (3.5-5.1) meq/L POC Chloride (102-111) mmol/L Chloride (98-107) meq/L Carbon Dioxide (21.0-32.0) meq/L Anion Gap (5-15) meq/L POC BUN (5-21) mg/dL BUN (7-18) mg/dL Creatinine (0.50-1.00) mg/dL POC Creatinine (0.6-1.3) mg/dL Estimated GFR (>89) mL/min POC Glucose (68-110) mg/dL Random Glucose (74-106) mg/dL Calcium (8.5-10.1) mg/dL Phosphorus (2.5-4.9) mg/dL Magnesium (1.5-2.5) mg/dL Total Bilirubin (0.2-1.0) mg/dL AST (15-37) U/L ALT (10-53) U/L Alkaline Phosphatase (45-117) U/L Total Creatine Kinase (26-192) U/L Troponin I (0.02-0.05) ng/mL Total Protein (6.4-8.2) g/dL Albumin (3.4-5.0) g/dL Nasal Screen MRSA (PCR) (Negative) Phenytoin 18.4 (10.0-20.0) mcg/mL Imaging Data Radiologist's impression: Head MRI 09/21/18 00:00 CONCLUSION: 1. Stable postsurgical changes on the right. No acute infarct. Head CT 09/21/18 17:34 CONCLUSION: 1. Right-sided posterior encephalomalacia as above. No new infarct or hemorrhage identified. 2. Findings called to Dr. Doyle at the time of dictation. . Head CTA 09/21/18 17:34 CONCLUSION: 1. Negative CTA head. 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 2. Findings called to Dr. Lea at the time of dictation. Neck CTA 09/21/18 17:34 CONCLUSION: 1. Negative CTA neck. Chest X-Ray 09/21/18 17:35 CONCLUSION: No acute cardiopulmonary disease. ECG Data EKG Prior to Arrival: No Attestation: I personally reviewed and interpreted this ECG as follows: (EKG shows a sinus rhythm with a rate of 88. No acute STT wave changes. She does have a right bundle branch block.) Discharge Plan Discharge Disposition Patient Disposition: ED Admit(ED Internal Use Only) Discharge Order Discharge Orders: ED Use Only Admit Order (Routine); Ordered 09/21/18 Ordered By: Sue Doyle Discharge Details Diagnosis: Paralysis, Seizure, Coma Physicians Team ED Provider: Sue Doyle Primary Care Provider: UNKNOWN, Attending Provider: Darian Aguirre Other Providers: Carmen Lea Status ED Status: Left Department Discharge Information Discharge Date/Time: 09/21/18 21:38
[2018-09-21] MEDS ORDERED: Fosphenytoin Inj 1,000 MGPE in Sodium Chlor 0.9% Inj 50 ML IV.SIG ONE (18:31)
[2018-09-21] MEDS ORDERED: Propofol 1000 mg/100 ml Inj 1,000 MG/100 ML BOTTLE IV.CONT PRN (18:32)
[2018-09-21] MEDS ORDERED: Etomidate Inj 20 MG/10 ML Ampul IV.PUSH ONE (18:32)
[2018-09-21] MEDS ORDERED: Succinylcholine Inj 200 MG/10 ML Vial IV.PUSH ONE (18:32)
--- NOTE | 2018-09-21 18:37 | CT ---
EXAM DATE: 09/21/2018 6:31 PM EST AGE/SEX: 68 years / Female INDICATIONS: Stroke alert; non-responsive. CLINICAL DATA: This is the patient's initial encounter. Patient reports that signs and symptoms have been present for 1 day and indicates a pain score of Nonresponsive. MEDICAL/SURGICAL HISTORY: Non-responsive. Non-responsive. RADIATION DOSE: 10.38 CTDI (mGy) ; Combined studies COMPARISON: No prior exams available for comparison. TECHNIQUE: Volumetric scanning was performed using a multirow detector CT scanner during bolus infus ion of 96 ml Visipaque 320 (iodixanol) nonionic water-soluble contrast as a cumulative dose for mult iple exams. The data was postprocessed with a variety of visualization algorithms including full-vo lume maximum intensity projection, multiplanar sliding thin-slab reformation, curved-planar reformati on, and surface-rendering techniques. Using automated exposure control and adjustment of the mA and/ or kV according to patient size, radiation dose was kept as low as reasonably achievable to obtain op timal diagnostic quality images. DICOM format image data is available electronically for review and comparison. Percent stenosis is calculated using the diameter of the stenotic region over the diameter of the nor mal distal internal carotid artery. FINDINGS: There is mild left-sided plaque formation around both carotid bifurcations. No hemodynamically signif icant stenosis. Great vessel origins are patent. No aneurysm or dissection identified in the neck. CONCLUSION: 1. Negative CTA neck. Electronically signed by: Edwin Childs MD Board Certified Radiologist 09/21/2018 6:36 PM EST
--- NOTE | 2018-09-21 19:04 | XR ---
EXAM DATE: 09/21/2018 6:57 PM EST AGE/SEX: 68 years / Female INDICATIONS: Stroke alert. CLINICAL DATA: This is the patient's initial encounter. Patient reports that signs and symptoms have been present for 1 day and indicates a pain score of Nonresponsive. MEDICAL/SURGICAL HISTORY: Non-responsive. Non-responsive. COMPARISON: . FINDINGS: The lungs are clear without infiltrate, nodule, or mass. There is no appreciable pleural effusion for technique. Heart and mediastinum are unremarkable. CONCLUSION: No acute cardiopulmonary disease. Electronically signed by: Caesar Goldberg MD Board Certified Radiologist 09/21/2018 7:02 PM EST
[2018-09-21] MEDS ORDERED: Bisacodyl 10 MG Supp RECTAL PRN (19:20)
--- NOTE | 2018-09-21 19:36 | P.HPCC ---
History of Present Illness Service: Critical care medicine Primary Care Physician: UNKNOWN Chief Complaint: Left-sided weakness, altered mental status History of Present Illness: 68-year-old female with a medical history significant for meningioma resection in May 2017 who developed nausea vomiting earlier today ordered by left- sided weakness at home with altered mental status. EMS was called by patient's and she was transported to [facility] ER. She was brought in as a stroke alert. Subsequently she had a focal left-sided seizure followed by a generalized tonic-clonic seizure and was intubated and placed on mechanical ventilation however ET tube got dislodged and was removed subsequently as patient's neurologic status seemed to have improved. Her left-sided weakness had resolved subsequently. Patient was accepted for admission by critical care medicine service. Head CT was negative for bleed and showed area of encephalomalacia on the right consistent with prior neurosurgery. CTA brain was done as well. Dr. Bartlett from neurology was contacted and did not feel patient was a candidate for TPA in view of her prior brain tumor resection and improvement of symptoms. When I evaluated the patient in the ER she was awake and alert had a nasal trumpet in place but was maintaining her O2 sats even without supplemental O2. She knew she was at the hospital and could give me the date month and year. She knew her home address. She could give me details of her history. Patient was administered 1 g of fosphenytoin IV in the ER. She is being admitted to the ICU. History was obtained by reviewing records, discussion with the ER physician as well as patient and her . Inpatient Certification: I certify that the inpatient services were ordered in accordance with Medicare regulations governing the order. This includes certification that hospital inpatient services are reasonable and necessary and in the case of services not specified as inpatient-only under 42 CFR 419.22(n), that they are appropriately provided as inpatient services in accordance to with the 2-midnight benchmark under 43 CFR 412.3(e) Estimated Total Length of Stay (Days): 5 Plans for Post Hospital Care: Not yet determined Review of Systems All other systems reviewed negative except as stated in [facility] - History History Provided By: Patient, Industrial Relations Manager / EMT - Medical History Medical History: Medical History (Last Reviewed 09/21/18 @ 18:22 by Sue Doyle) Brain tumor HTN (hypertension) - Tobacco History Smoking Status: Unknown if ever smoked - Alcohol History How Often Do You Have a Drink Containing Alcohol: Unable to Obtain - Travel History Recent Travel in the [place] Within the Last 8 Weeks: No Recent Travel Out of the Country Within the Last 8 Weeks: No - Immunization History Tetanus Immunization: Unable to Assess Medications and Allergies Active Medications: Active Medications Al Hydroxide/Mg Hydroxide (Milk Of Magnesia Liq) 30 ml PO Q12H PRN PRN Reason: Mild Constipation Albuterol (Duoneb Neb (Prn)) 1 ampul NEB Q2HR NEB PRN PRN Reason: WHEEZING Bisacodyl (Dulcolax Supp) 10 mg RECTAL DAILY PRN PRN Reason: SEVERE CONSITIPATION Chlorhexidine Gluconate (Chlorhexidine 2% Cloth) 3 pack TOPICAL DAILY@0400 [facility] Stop: 09/27/18 03:59 Chlorhexidine Gluconate (Chlorhexidine 2% Cloth) 3 pack TOPICAL DAILY@0400 PRN PRN Reason: Extra cloth needed Stop: 09/27/18 03:59 Propofol (Diprivan 1000 Mg/100 Ml Inj) 1,000 mg in 100 mls @ 2.319 mls/hr IV.CONT TITRATE PRN; Protocol PRN Reason: Per Protocol Sodium Chloride (Ns Inj) 1,000 mls @ 84 mls/hr IV.CONT .[id number] [facility] Lactulose (Lactulose Liq) 30 ml PO DAILY PRN PRN Reason: SEVERE CONSITIPATION Ondansetron HCl (Zofran Inj) 4 mg IV.PUSH Q6H PRN PRN Reason: NAUSEA OR VOMITING Phenytoin Sodium (Dilantin Inj) 100 mg IV.PUSH Q8HR [facility] Senna/Docusate Sodium (Jacquie-Colace) 1 tab PO BID [facility] Sennosides (Senokot) 17.2 mg PO Q12H PRN PRN Reason: Moderate Constipation Sodium Chloride (Ns Flush) 2 ml IV.FLUSH PRN PRN PRN Reason: FLUSH AFTER USING IV ACCESS Sodium Chloride (Ns Flush) 2 ml IV.FLUSH BID [facility] Sodium Chloride (Ns Flush) 2 ml IV.FLUSH PRN PRN PRN Reason: FLUSH AFTER USING IV ACCESS Allergies Allergy/AdvReac Type Severity Reaction Status Date / Time Sulfa (Sulfonamide Allergy Mild HEADACHE Verified 09/21/18 17:35 Antibiotics) Home Medications Medication Instructions Recorded Confirmed Type Unable to Obtain Home Meds 09/21/18 09/21/18 History Results - Labs CBC & Chem 7: 09/21/18 17:30 09/21/18 17:30 Labs: Short CBC 09/21/18 Range/Units 17:30 WBC 13.2 H (4.0-11.0) th/mm3 Hgb 14.8 (11.6-15.3) gm/dL Hct 45.0 (35.0-46.0) % Plt Count 257 (150-450) th/mm3 BMP 09/21/18 17:30 Sodium 142 Potassium 3.4 L Chloride 104 Carbon Dioxide 17.6 L BUN 21 H Creatinine 1.24 H Calcium 8.9 Cardiac Enzymes 09/21/18 Range/Units 17:30 Total Creatine Kinase 89 (26-192) U/L Troponin I Less than 0.02 L (0.02-0.05) ng/mL Liver Function 09/21/18 Range/Units 17:30 Total Bilirubin 0.6 (0.2-1.0) mg/dL AST 23 (15-37) U/L ALT 34 (10-53) U/L Alkaline Phosphatase 73 (45-117) U/L Albumin 4.4 (3.4-5.0) g/dL - Imaging Impressions Head CT 09/21/18 17:34 CONCLUSION: 1. Right-sided posterior encephalomalacia as above. No new infarct or hemorrhage identified. 2. Findings called to Dr. Doyle at the time of dictation. . Head CTA 09/21/18 17:34 CONCLUSION: 1. Negative CTA head. 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 2. Findings called to Dr. Lea at the time of dictation. Neck CTA 09/21/18 17:34 CONCLUSION: 1. Negative CTA neck. Chest X-Ray 09/21/18 17:35 CONCLUSION: No acute cardiopulmonary disease. Exam Vital signs: Vital Signs 09/21/18 17:34 09/21/18 17:35 09/21/18 18:03 Pulse Rate 105 H Respiratory Rate 16 Blood Pressure 164/73 H Pulse Oximetry 98 98 100 09/21/18 18:06 09/21/18 18:24 09/21/18 18:40 Pulse Rate 100 H 94 H Respiratory Rate 17 20 Blood Pressure 162/73 H 162/73 H Pulse Oximetry 100 100 100 Intake & Output 09/21/18 09/21/18 09/22/18 06:59 18:59 06:59 Intake Total 70 / 70 Balance 70 / 70 Weight 77.3 kg Intake: IV 70 / 70 Cerebyx Inj 1,000 MGPE In NS 70 / 70 Inj 50 ML @ 280 mls/hr IV.SIG ONCE ONE Rx#:[id number] Narrative: HEENT/Neuro: No pallor or icterus, tongue bite noted, tongue moist, DAYLIN, Awake alert oriented 3, speech appears normal, subtle left upper extremity weakness, moving all 4 extremities, DTR ++ bilaterally, plantars equivocal Neck: No JVD Chest/pulmonary: CTA bilaterally Cardiovascular: S1-S2 regular no gallop or murmur GI/abdomen: Soft, nontender, bowel sounds present Extremities: Warm bilaterally, no edema Caprini VTE Risk Assessment Caprini VTE Risk Assessment: Moderate/High Risk (score >= 2) VTE Pharmacological Exception Reason: Intracranial lesions Caprini Risk Assessment Model: Point Value = 1 Point Value = 2 Point Value = 3 Point Value = 5 Age 41-60 Minor surgery BMI > 25 kg/m2 Swollen legs Varicose veins or History of unexplained or recurrent spontaneous Oral contraceptives or hormone replacement Sepsis (< 1 month) Serious lung disease, including pneumonia (< 1 month) Abnormal pulmonary function Acute myocardial infarction Congestive heart failure (< 1 month) History of inflammatory bowel disease Medical patient at bed rest Age 61-74 Arthroscopic surgery Major open surgery (> 45 min) Laparoscopic surgery (> 45 min) Malignancy Confined to bed (> 72 hours) Immobilizing plaster cast Central venous access Age >= 75 History of VTE Family history of VTE Factor V Leiden Prothrombin [id number] Lupus anticoagulant Anticardiolipin antibodies Elevated serum homocysteine Heparin-induced thrombocytopenia Other congenital or acquired thrombophilia Stroke (< 1 month) Elective arthroplasty Hip, pelvis, or leg fracture Acute spinal cord injury (< 1 month) Prophylaxis Regimen: Total Risk Factor Score Risk Level Prophylaxis Regimen 0-1 Low Early ambulation 2 Moderate Order ONE of the following: *Sequential Compression Device (SCD) *Heparin 5000 units SQ BID 3-4 Higher Order ONE of the following medications: *Heparin 5000 units SQ TID *Enoxaparin/Lovenox 40 mg SQ daily (WT < 150 kg, CrCl > 30 mL/min) *Enoxaparin/Lovenox 30 mg SQ daily (WT < 150 kg, CrCl > 10-29 mL/min) *Enoxaparin/Lovenox 30 mg SQ BID (WT < 150 kg, CrCl > 30 mL/min) AND/OR *Sequential Compression Device (SCD) 5 or more Highest Order ONE of the following medications: *Heparin 5000 units SQ TID (Preferred with Epidurals) *Enoxaparin/Lovenox 40 mg SQ daily (WT < 150 kg, CrCl > 30 mL/min) *Enoxaparin/Lovenox 30 mg SQ daily (WT < 150 kg, CrCl > 10-29 mL/min) *Enoxaparin/Lovenox 30 mg SQ BID (WT < 150 kg, CrCl > 30 mL/min) AND *Sequential Compression Device (SCD) Assessment and Plan - Assessment and Plan Plan: 68-year-old female with: Left-sided weakness Altered mental status New onset seizure History of hypertension History of meningioma resection Plan: Admit to ICU Seizure precautions Loaded with fosphenytoin 1 g IV stat, continue 100 mg IV every 8 hourly. Obtain EEG, MRI brain with and without contrast. Neurology consult for new onset seizure N.p.o. for now Appears to be protecting airway currently. Supplemental O2 as needed. Monitor intake output, monitor and replete electrolytes, follow BUN creatinine Follow CBC SCDs for DVT prophylaxis. Review MRI prior to deciding Lovenox for DVT prophylaxis If patient has recurrent seizures may require endotracheal intubation for airway protection. Time spent on critical care excluding procedures 45 minutes
[2018-09-21] MEDS: Sod Chloride 0.9% Inj 1,000 ML IV.CONT SCH (20:49)
[2018-09-21] MEDS: Senna/Docusate Sodium 8.6/50 MG Tablet PO SCH (20:50)
[2018-09-21] MEDS ORDERED: Gadobutrol PF 10 MMOL/10 ML Vial (for RAD) IV.SIG ONE (22:34)
--- NOTE | 2018-09-21 22:48 | MR ---
EXAM DATE: 09/21/2018 10:36 PM EST AGE/SEX: 68 years / Female INDICATIONS: . Transient left sided weakness, seizure. CLINICAL DATA: This is the patient's subsequent encounter. Patient reports that signs and symptoms h ave been present for 1 day and indicates a pain score of 0/10. MEDICAL/SURGICAL HISTORY: . Brain Tumor, HTN, Hypothyroid . Wrist, Craniotomy right side. COMPARISON: POI, MR BRAIN W AND W/O CONTRAST, 07/30/2018. . TECHNIQUE: Multiplanar, multisequence examination of the brain was performed without and with 8 ml Ga davist (gadobutrol) contrast as a single exam dose. FINDINGS: There is previous right craniotomy and encephalomalacia in the right parietal and posterior temporal lobe related to prior tumor resection and prior infarct. No new infarct identified. Is no significant change since July 2018. Left hemisphere remains intact. Posterior fossa unremarkable. CONCLUSION: 1. Stable postsurgical changes on the right. No acute infarct. Electronically signed by: Edwin Childs MD Board Certified Radiologist 09/21/2018 10:46 PM EST
[2018-09-22] MEDS ORDERED: Chlorhexidine Gluconate 2% 1 Pack (2 Cloths) TOPICAL PRN (04:00)
[2018-09-22 04:06] LABS: Baso # (Auto) 0.1 th/mm3 (0.0-0.2); Baso % (Auto) 0.5 % (0.0-2.0); Eos % (Auto) 0.1 % (0.0-4.0); Hematocrit 43.5 % (35.0-46.0); Hemoglobin 14.4 gm/dL (11.6-15.3); Lymph # (Auto) 1.3 th/mm3 (1.0-4.8); Lymph % (Auto) 11.1 % (9.0-44.0); Mean Corpuscular HGB Conc 33.2 % (32.0-36.0); Mean Corpuscular Hemoglobin 32.2 pg (27.0-34.0); Mean Corpuscular Volume 96.9 fL (80.0-100.0); Mean Platelet Volume 10.1 fL (7.0-11.0); Mono # (Auto) 0.9 th/mm3 (0.0-0.9); Mono % (Auto) 7.8 % (0.0-8.0); Neut # (Auto) 9.3 th/mm3 (1.8-7.7); Neut % (Auto) 80.5 % (16.0-70.0); Platelet Count 189 th/mm3 (150-450); Red Blood Count 4.49 mil/mm3 (4.00-5.30); Red Cell Distribution Width 13.7 % (11.6-17.2); White Blood Count 11.5 th/mm3 (4.0-11.0)
[2018-09-22 04:29] LABS: Albumin 4.1 g/dL (3.4-5.0); Anion Gap 8 meq/L (5-15); Aspartate Aminotransferase 32 U/L (15-37); Blood Urea Nitrogen 20 mg/dL (7-18); Calcium 8.5 mg/dL (8.5-10.1); Carbon Dioxide 30.8 meq/L (21.0-32.0); Chloride 105 meq/L (98-107); Glomerular Filtration Rate 68 mL/min (>89); Glucose,Random 127 mg/dL (74-106); Magnesium 2.2 mg/dL (1.5-2.5); Potassium 3.3 meq/L (3.5-5.1); Sodium 144 meq/L (136-145)
[2018-09-22 04:35] LABS: Alanine Aminotransferase 32 U/L (10-53); Alkaline Phosphatase 66 U/L (45-117); Phosphorus 3.6 mg/dL (2.5-4.9); Total Protein 7.3 g/dL (6.4-8.2)
[2018-09-22] MEDS: Chlorhexidine Gluconate 2% 1 Pack (2 Cloths) TOPICAL SCH (05:22)
--- NOTE | 2018-09-22 10:12 | MB ---
cc: Carmen Lea MD DATE: 09/22/2018 REASON FOR CONSULTATION: This was a Stroke Alert, but possible seizure. HISTORY OF PRESENT ILLNESS: This is a 68-year-old woman with a history of a meningioma that, right-sided that was resected in [address] Gonzalez. She came in for nausea, vomiting earlier in the day, left-sided weakness at home, altered mental status, came into the ER as a Stroke Alert, found to have a focal left-sided seizure and then generalized tonic-clonic. Was initially going to be intubated, but the ET tube got dislodged, and she was breathing properly, and it was aborted at that time. She still is awake and alert, has no trouble breathing. Left-sided weakness has resolved. 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 She did not receive TPA, due to the fact that this was a seizure not a stroke. She is status post MRI that does not show any residual meningioma or any acute infarct. Prior to her having surgery and at postop, she was on Keppra, but it was discontinued at some point in time. PAST MEDICAL HISTORY: As stated, but also of hypertension. SOCIAL HISTORY: No alcohol, tobacco, or drugs. ALLERGIES: SULFA. MEDICATION: Refer to her MAR. PHYSICAL EXAMINATION: VITAL SIGNS: Temperature currently is 99, pulse 86, respiratory rate 19, blood pressure 113/56. NEUROLOGIC: She is awake, alert, fluent. Pupils are reactive. Visual chapman full. Face symmetrical. Tongue midline. She knows it is 09/22/2018. She knows she is in the hospital. Motor: I do not see any weakness, drift or leg lag. Cerebellar testing is normal. DTRs are 1+. Gait is withheld. Will wait for her to get out of the ICU, and get her out of bed with PT. LABORATORY DATA: Reviewed. White count 11.5, hemoglobin 14.4, hematocrit 43.5, platelets 189,000. Coag panel: PTT 22.7. Chemistries: Potassium 3.3. GFR 68. BUN 20, glucose 127. IMAGING: Reports as far as a head CT did not show anything acute. CT of the carotids and [place] were unremarkable. MRI brain: Stable postsurgical changes on the right. No acute infarct. IMPRESSION: Status post seizure. PLAN: Recommend continuing her current Dilantin 100 mg every 8 hours. She was loaded. We will go ahead and get an EEG, and get a Dilantin level, and if she is stable, certainly she can be downgraded to one of the other floors on telemetry. Continue her Dilantin for the interim, and if stable, once downgraded on the regular ko, certainly she can be discharged home. No driving for 6 months and will have her follow up with us in the office for medicine adjustment. MD DAVON Nunez/miranda , 09:45 AM , 09:52 AM
--- NOTE | 2018-09-22 10:21 | P.PNCC ---
Subjective Subjective Remarks/Hospital Course: 68-year-old female with a medical history significant for meningioma resection in May 2017 who developed nausea vomiting earlier today ordered by left- sided weakness at home with altered mental status. EMS was called by patient's and she was transported to [facility] ER. She was brought in as a stroke alert. Subsequently she had a focal left-sided seizure followed by a generalized tonic-clonic seizure and was intubated and placed on mechanical ventilation however ET tube got dislodged and was removed subsequently as patient's neurologic status seemed to have improved. Her left-sided weakness had resolved subsequently. Patient was accepted for admission by critical care medicine service. Head CT was negative for bleed and showed area of encephalomalacia on the right consistent with prior neurosurgery. CTA brain was done as well. Dr. Bartlett from neurology was contacted and did not feel patient was a candidate for TPA in view of her prior brain tumor resection and improvement of symptoms. When I evaluated the patient in the ER she was awake and alert had a nasal trumpet in place but was maintaining her O2 sats even without supplemental O2. She knew she was at the hospital and could give me the date month and year. She knew her home address. She could give me details of her history. Patient was administered 1 g of fosphenytoin IV in the ER. She is being admitted to the ICU. History was obtained by reviewing records, discussion with the ER physician as well as patient and her . 09/22: Alert and oriented today. Or seizure activity. Apparently has some chronic weakness on the left side as well, residual from her right craniotomy in 2016. Objective Vital Signs / I&O: Vital Signs 09/21/18 17:34 09/21/18 17:35 09/21/18 18:03 Temperature Pulse Rate 105 H Respiratory Rate 16 Blood Pressure 164/73 H Pulse Oximetry 98 98 100 09/21/18 18:06 09/21/18 18:24 09/21/18 18:40 Temperature Pulse Rate 100 H 94 H Respiratory Rate 17 20 Blood Pressure 162/73 H 162/73 H Pulse Oximetry 100 100 100 09/21/18 20:00 09/21/18 20:12 09/21/18 20:51 Temperature 98 F Pulse Rate 78 72 Respiratory Rate 18 16 Blood Pressure 148/68 H 148/68 H Pulse Oximetry 99 99 100 09/21/18 22:00 09/21/18 23:00 09/22/18 00:00 Temperature 99.6 F Pulse Rate 77 80 81 Respiratory Rate 15 17 19 Blood Pressure 145/69 H 135/65 150/69 H Pulse Oximetry 99 99 98 09/22/18 01:00 09/22/18 01:55 09/22/18 02:00 Temperature 99.0 F Pulse Rate 82 81 76 Respiratory Rate 20 20 Blood Pressure 132/63 128/60 Pulse Oximetry 98 99 09/22/18 03:00 09/22/18 04:00 09/22/18 05:00 Temperature Pulse Rate 83 81 79 Respiratory Rate 19 20 18 Blood Pressure 123/60 116/55 L 119/57 L Pulse Oximetry 98 98 99 09/22/18 06:00 09/22/18 08:05 Temperature Pulse Rate 86 Respiratory Rate 19 Blood Pressure 113/56 L Pulse Oximetry 98 100 Intake & Output 09/21/18 09/22/18 09/22/18 18:59 06:59 18:59 Intake Total 70 / 70 Output Total 925 / 925 Balance -855 / -855 Weight 77.3 kg 77.8 kg Intake: IV 70 / 70 Cerebyx Inj 1,000 MGPE In NS 70 / 70 Inj 50 ML @ 280 mls/hr IV.SIG ONCE ONE Rx#:[id number] Output: Urine Amount (Catheter) 925 / 925 Indwelling Urethral Catheter 925 / 925 Other: Weight On Admission 77.3 kg Result Diagrams: 09/22/18 03:40 09/22/18 03:40 Objective Remarks: Narrative: HEENT/Neuro: No pallor or icterus, tongue bite clean, tongue moist, DAYLIN, Awake alert oriented 3, speech appears normal, subtle left upper extremity weakness, moving all 4 extremities, DTR ++ bilaterally, toes down bilaterally Neck: Airway widely patent, no obstructive noises. Chest/pulmonary: CTA bilaterally, comfortable respiratory pattern Cardiovascular: S1-S2 regular no gallop or murmur, no JVD GI/abdomen: Soft, nontender, bowel sounds present Extremities: Warm bilaterally, no edema, well-perfused Assessment and Plan - Assessment and Plan Plan: 68-year-old female with: Left-sided weakness Altered mental status New onset seizure History of hypertension History of meningioma resection Plan: Transfer out of ICU Initiated fosphenytoin continue 100 mg IV every 8 hourly. Obtain EEG, MRI brain with and without contrast. Neurology consult for new onset seizure Regular diet Appears to be protecting airway currently. Supplemental O2 as needed. Monitor intake output, monitor and replete electrolytes, follow BUN creatinine SCDs for DVT prophylaxis. Review MRI prior to deciding Lovenox for DVT prophylaxis Overall impression: New onset seizures, appear controlled on Cerebyx. Check magnesium level, EEG.
[2018-09-22] MEDS ORDERED: Potassium Chlor 20 mEq Premix 20 MEQ/100 ML PIGGYBACK IV.SIG ONE (10:45)
[2018-09-22] MEDS: Sod Chloride 0.9% Inj 1,000 ML IV.CONT SCH ×2 (10:49→21:46)
[2018-09-22] MEDS: Senna/Docusate Sodium 8.6/50 MG Tablet PO SCH ×2 (10:51→21:47)
--- NOTE | 2018-09-22 14:39 | ECG ---
Date Performed: 09/21/2018 Time Performed: 18:30:28 PTAGE: 68 years EKG: Sinus rhythm POSSIBLE LEFT ATRIAL ENLARGEMENT BORDERLINE LEFT AXIS DEVIATION LOW QRS VOLTAGE IN PRECORDIAL LEADS INCOMPLETE RIGHT BUNDLE BRANCH BLOCK BORDERLINE ECG NO PREVIOUS TRACING available DOCTOR: Dameon Joseph Interpretating Date/Time 09/22/2018 14:38:30
[2018-09-22] MEDS: Famotidine 20 MG Tablet PO SCH ×2 (18:37→21:47)
--- NOTE | 2018-09-22 21:55 | MG ---
cc: Carmen Lea MD AGE: [age] years old. EEG NUMBER: 19-19. ROOM: 1322. The patient on oxygen with photic stimulation. Awake, drowsy, asleep, alert, oriented. MRI shows postsurgical changes on the right side, status post meningioma resection. She came in with some left-sided deficits and a seizure, on Dilantin currently. DESCRIPTION OF RECORD: The patient has an alpha rhythm of 8 Hz, 20-40 microvolts. Symmetrical background. Some eye movement artifacts seen but overall symmetrical. EKG looks sinus. Photic stimulation with some mild driving response. No gross epileptiform features. Just quite a bit of artifact from the patient not holding still. There may be isolated sharp over the right hemisphere at EPOC 68 with ____ reversal over the right temporal region. It is not continuous. Then, there is another one later on in that recording off and on. IMPRESSION: Abnormal EEG due to sharp waves seen over the right hemisphere. Certainly, a focus for epileptogenicity in this patient status post history of meningioma resection. Continue antiepileptic medication. Clinical correlation. MD DAVON Nunez/echo/fabienne , 08:53 PM , 08:58 PM
[2018-09-23] MEDS: Chlorhexidine Gluconate 2% 1 Pack (2 Cloths) TOPICAL SCH (04:00)
--- NOTE | 2018-09-23 08:42 | P.PNNEU ---
Subjective Subjective Comments: no further sz Active Medications: Active Medications Al Hydroxide/Mg Hydroxide (Milk Of Magnesia Liq) 30 ml PO Q12H PRN PRN Reason: Mild Constipation Albuterol (Duoneb Neb (Prn)) 1 ampul NEB Q2HR NEB PRN PRN Reason: WHEEZING Bisacodyl (Dulcolax Supp) 10 mg RECTAL DAILY PRN PRN Reason: SEVERE CONSITIPATION Chlorhexidine Gluconate (Chlorhexidine 2% Cloth) 3 pack TOPICAL DAILY@0400 [facility] Stop: 09/27/18 03:59 Last Admin: 09/23/18 04:00 Dose: Not Given Chlorhexidine Gluconate (Chlorhexidine 2% Cloth) 3 pack TOPICAL DAILY@0400 PRN PRN Reason: Extra cloth needed Stop: 09/27/18 03:59 Famotidine (Pepcid) 20 mg PO BID [facility] Last Admin: 09/22/18 21:47 Dose: 20 mg Sodium Chloride (Ns Inj) 1,000 mls @ 84 mls/hr IV.CONT .[id number] [facility] Last Admin: 09/22/18 21:46 Dose: 84 mls/hr Lactulose (Lactulose Liq) 30 ml PO DAILY PRN PRN Reason: SEVERE CONSITIPATION Ondansetron HCl (Zofran Inj) 4 mg IV.PUSH Q6H PRN PRN Reason: NAUSEA OR VOMITING Last Admin: 09/22/18 18:44 Dose: 4 mg Phenytoin Sodium (Dilantin Inj) 100 mg IV.PUSH Q8HR [facility] Last Admin: 09/23/18 06:43 Dose: 100 mg Senna/Docusate Sodium (Jacquie-Colace) 1 tab PO BID [facility] Last Admin: 09/22/18 21:47 Dose: 1 tab Sennosides (Senokot) 17.2 mg PO Q12H PRN PRN Reason: Moderate Constipation Sodium Chloride (Ns Flush) 2 ml IV.FLUSH BID [facility] Last Admin: 09/22/18 21:46 Dose: Not Given Sodium Chloride (Ns Flush) 2 ml IV.FLUSH PRN PRN PRN Reason: FLUSH AFTER USING IV ACCESS Allergies/Adverse Reactions: Allergies Allergy/AdvReac Type Severity Reaction Status Date / Time Sulfa (Sulfonamide Allergy Mild HEADACHE Verified 09/21/18 17:35 Antibiotics) Physical Exam Vital signs: Vital Signs 09/22/18 09:00 09/22/18 10:00 09/22/18 11:00 Temperature Pulse Rate 80 77 85 Respiratory Rate 17 16 16 Blood Pressure 110/55 L 111/59 L 108/55 L Pulse Oximetry 99 100 98 09/22/18 12:05 09/22/18 12:50 09/22/18 13:00 Temperature 98.7 F Pulse Rate 82 78 Respiratory Rate 11 L 21 Blood Pressure 107/57 L 115/56 L Pulse Oximetry 98 98 93 L 09/22/18 14:00 09/22/18 15:55 09/22/18 20:00 Temperature 98.8 F 99.2 F Pulse Rate 75 78 79 Respiratory Rate 18 20 18 Blood Pressure 121/60 118/56 L 117/58 L Pulse Oximetry 94 L 99 94 L 09/23/18 00:00 09/23/18 04:00 Temperature 98.7 F 98.7 F Pulse Rate 76 77 Respiratory Rate 18 18 Blood Pressure 122/60 113/60 Pulse Oximetry 93 L 94 L Intake & Output 09/22/18 09/23/18 09/23/18 18:59 06:59 18:59 Intake Total 1100 / 1100 1000 / 1000 Output Total 275 / 275 Balance 825 / 825 1000 / 1000 Weight 76.3 kg Intake: IV 1100 / 1100 1000 / 1000 NS Inj 1,000 ML @ 84 mls/hr IV. 1000 / 1000 1000 / 1000 CONT .[id number] [facility] Rx#:[id number] KCl 20 mEq Premix Inj 20 meq In 100 / 100 100 ml @ 50 mls/hr IV.SIG ONCE ONE Rx#:[id number] Output: Urine Amount (Catheter) 275 / 275 Indwelling Urethral Catheter 275 / 275 Other: # Voids 1 - Constitutional no acute distress - Routine HEENT Exam Head: Present: normocephalic Eye: Present: EOMI - Routine Neurological Exam Present: oriented X3, moving all extremities, normal tone, normal speech - Urinary Catheter Management Indwelling Urethral Catheter Cath placed during this visit: yes Reason for continuing: Other continuation reason Insertion date: 09/21/18 Insertion time: 18:00 Objective Laboratory Results - last 24 hr 09/22/18 03:40 Phenytoin 18.4 Diagnostic Tests: eeg sharps over right hemisphere no active sz Review/Management - Review/Management Plan: cont pht 50 mg in am 100 mg bid f/u with me in office in 2 wks no driving heights bathing alone in a tub all dw pt and . dc planning
[2018-09-23 09:32] VITALS: O2SAT 95
[2018-09-23] MEDS: Famotidine 20 MG Tablet PO SCH (09:56)
[2018-09-23] MEDS: Senna/Docusate Sodium 8.6/50 MG Tablet PO SCH (09:56)
[2018-09-23 12:36] VITALS: BP 127/60; PULSE 75; RESP 16; TEMP 97.8
--- NOTE | 2018-09-23 13:07 | P.DCO ---
Physical Therapy Order: Evaluate and treat, Improve ambulation and Strength and gait training Case Management Consult Case Management Consult-Home Health: Yes I have seen patient Jessa Martinez on 09/23/18. My clinical findings support the need for the requested home health care services because: Deconditioned with increased weakness and High risk of falls I certify that my clinical findings support that this patient is homebound because: Unsafe to leave home unassisted and Unable to use public transportation
--- NOTE | 2018-09-23 20:12 | P.DS ---
DS: Providers Date of admission: 09/21/18 19:01 Primary care physician: UNKNOWN Consults: 09/21/18 19:25 Consult to Neurology Routine Consulting Provider: Carmen Lea Reason for Consultation: left sided weakness, new onset seizure Notified:: Service Spoke with:: [facility] Date Notified:: 09/21/18 Time Notified:: 19:38 Ordering Provider: LYNETTE 09/22/18 10:22 Consult to Hospitalist Routine Consulting Provider: Asha Mullen Reason for Consultation: New onset seizures Notified:: Service Spoke with:: NORBERTO Date Notified:: 09/22/18 Time Notified:: 11:35 Ordering Provider: SANDRA Brief History from admission: 68-year-old female with a medical history significant for meningioma resection in May 2017 who developed nausea vomiting earlier today ordered by left- sided weakness at home with altered mental status. EMS was called by patient's and she was transported to [facility]. She was brought in as a stroke alert. Subsequently she had a focal left-sided seizure followed by a generalized tonic-clonic seizure and was intubated and placed on mechanical ventilation however ET tube got dislodged and was removed subsequently as patient's neurologic status seemed to have improved. Her left-sided weakness had resolved subsequently. Patient was accepted for admission by critical care medicine service. Head CT was negative for bleed and showed area of encephalomalacia on the right consistent with prior neurosurgery. CTA brain was done as well. Dr. Bartlett from neurology was contacted and did not feel patient was a candidate for TPA in view of her prior brain tumor resection and improvement of symptoms. When I evaluated the patient in the ER she was awake and alert had a nasal trumpet in place but was maintaining her O2 sats even without supplemental O2. She knew she was at the hospital and could give me the date month and year. She knew her home address. She could give me details of her history. Patient was administered 1 g of fosphenytoin IV in the ER. She is being admitted to the ICU. History was obtained by reviewing records, discussion with the ER physician as well as patient and her . DS: Summary Time Spent with Patient Total time spent providing and/or coordinating discharge services: Quality: VTE Deep Vein Thrombosis/Pulmonary Embolism Present on Admission: Yes Results Impressions ITS Impressions Head MRI 09/21/18 00:00 CONCLUSION: 1. Stable postsurgical changes on the right. No acute infarct. Head CT 09/21/18 17:34 CONCLUSION: 1. Right-sided posterior encephalomalacia as above. No new infarct or hemorrhage identified. 2. Findings called to Dr. Doyle at the time of dictation. . Head CTA 09/21/18 17:34 CONCLUSION: 1. Negative CTA head. 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 2. Findings called to Dr. Lea at the time of dictation. Neck CTA 09/21/18 17:34 CONCLUSION: 1. Negative CTA neck. Chest X-Ray 09/21/18 17:35 CONCLUSION: No acute cardiopulmonary disease. Discharge Plan Discharge Disposition Patient Disposition: /Home Health Service Discharge Condition Condition: Stable Discharge Order Discharge Orders: Discharge Order (Routine); Ordered 09/23/18 Ordered By: Asha Mullen Physicians Team ED Provider: Sue Doyle Primary Care Provider: UNKNOWN, Attending Provider: Asha Mullen Other Providers: Carmen Lea Rxs /Orders / Referrals /Forms Prescriptions: New phenytoin sodium extended [Dilantin Extended] 100 mg capsule 100 mg PO BID Qty: 60 RF: 0 phenytoin 50 mg tablet,chewable 50 mg PO DAILY Qty: 30 RF: 0 Continue atorvastatin 40 mg Tablet 60 mg PO DAILY RF: 0 levothyroxine [Synthroid] 75 mcg Tablet 75 mcg PO DAILY RF: 0 triamterene 50 mg Capsule See Label Instructions .ROUTE .COMPLEX RF: 0 Referrals: Carmen Lea MD [Physician] - See Instructions ( Please call the physician's office to book the appointment to be seen within [2 wks].) [facility], [Agency] - See Instructions (agency will call with appointment time) UNKNOWN, [Primary Care Provider] - See Instructions (Please call [facility] to schedule appt. Vibha Omer [facility] [id number] ) Discharge Instructions Patient Printed Instructions: Phenytoin (By mouth), Nonepileptic Seizures (DC) , New-Onset Seizure in Adults (DC) Additional Instructions: No driving till cleared per neurology Status ED Status: Left Department Discharge Information Discharge Date/Time: 09/23/18 15:08
== END 2018-09-23 15:08 | disposition home health service (06) | DRG 101 ==
LOC: NEPE 17:32 → NEDA 19:01 → N03 21:16 → N05 09-22 15:38
PROVIDERS: ADMIT Internal Medicine; ATTEND Internal Medicine
CPT/HCPCS: 51702; 70450; 70496; 70498; 70553; 71010; 71045; 76937; 80048; 80053; 80185; 82550; 83735; 84100; 84484; 85025; 85610; 85730; 87641; 93005; 95819; 97163; 99291; A9585; J0330; J1165; J2405; J3480; J7030; Q2009; Q9967